=== PATIENT | female | born 1960 | race Caucasian/White ===

== ENCOUNTER 2022-01-30 00:55 | Inpatient (IN) ==
[2022-01-30] MEDS ORDERED: ALBUT/IPRATROP 3MG/0.5MG NEB 3 ML VIAL NEB STA (01:14)
[2022-01-30] MEDS ORDERED: dexAMETHasone**PF** 10 MG/ML VIAL IV ONE (01:14)
--- NOTE | 2022-01-30 01:22 | Emergency Department Note ---
History of Present Illness General Chief complaint: Shortness of Breath/Dyspnea Stated complaint: SOB,SWELLING TONGUE Time Seen by Provider: 01/30/22 01:09 History of Present Illness This is a 61-year-old female presenting to the emergency department for evaluation of shortness of breath symptoms worsening over the past 10 hours. The patient is accompanied by a family member who attempts to provide some histo ry. The patient began having some shortness of breath around 3 PM yesterday which has worsened over the evening. She is coughing and feels like her throat is swelling. Family is unsure whom the patient follows with for primary care services, and they are unsure what medication she is taking. Patient has not had reports of fevers or chills. She is not vaccinated against COVID-19. History is very limited. Home Medications Medication Instructions Recorded Confirmed Type Unobtainable 01/30/22 01/30/22 History Allergies Allergy/AdvReac Type Severity Reaction Status Date / Time aspirin AdvReac Severe Gastrointestinal Verified 01/30/22 01:43 Upset Past Med/Surg History Medical History (Updated 01/30/22 @ 05:41 by Chetan Lynn PA-C) Acute kidney injury Anemia Hyperglycemia Hypothyroidism Shortness of breath Surgical History (Updated 01/30/22 @ 05:41 by Chetan Lynn PA-C) No pertinent past surgical history Social History Smoking Status: Current every day smoker Preferred Language: Spanish Feels Safe at Home: Yes Review of Systems A total of 10 systems reviewed and were otherwise negative Physical Exam Vital Signs Vital Signs - 24 hr 01/30/22 01:03 01/30/22 01:20 01/30/22 01:28 Temperature 36.8 C Temperature Source Oral Pulse Rate 93 H 92 H Pulse Rate [Right Finger] 92 H Pulse Rhythm Regular Pulse Rhythm [Right Finger] Regular Pulse Strength [Right Finger] Normal Respiratory Rate 18 24 Respiratory Effort / Characteristics Spontaneous Labored Respiratory Depth Respiratory Pattern Regular Blood Pressure 150/88 H Blood Pressure [Right Arm] 144/115 H Blood Pressure Mean 108 Blood Pressure Mean [Right Arm] 124 Blood Pressure Position Sitting Blood Pressure Position [Right Arm] Sitting Pulse Oximetry 94 88 L 96 Oxygen Delivery Method Room Air Room Air Nasal Cannula Nasal Cannula Oxygen Flow Rate 0 2 Sepsis Recent Fever Within 48 Hours No Sepsis New/Unexplained Change in Mental Status N/A Sepsis Action Taken by Nursing No Action Required Oxygen Flow Rate - Titration 2 Pulse Oximetry Post Tiitration 96 01/30/22 01:35 01/30/22 03:00 01/30/22 05:21 Temperature Temperature Source Pulse Rate Pulse Rate [Right Finger] 94 H 91 H 88 Pulse Rhythm Pulse Rhythm [Right Finger] Regular Pulse Strength [Right Finger] Normal Respiratory Rate 24 18 19 Respiratory Effort / Characteristics Accessory Muscle Use Respiratory Depth Deep Respiratory Pattern Blood Pressure Blood Pressure [Right Arm] 142/83 H 154/91 H Blood Pressure Mean Blood Pressure Mean [Right Arm] 102 112 Blood Pressure Position Blood Pressure Position [Right Arm] Lying Pulse Oximetry 93 93 94 Oxygen Delivery Method Nasal Cannula Nasal Cannula Nasal Cannula Oxygen Flow Rate 4 2 4 Sepsis Recent Fever Within 48 Hours Sepsis New/Unexplained Change in Mental Status Sepsis Action Taken by Nursing Oxygen Flow Rate - Titration Pulse Oximetry Post Tiitration VITALS: Vitals are noted on the nurse's note and reviewed by myself. Vital signs stable. GENERAL: Female who appears in moderate distress on arrival to the room. She is audibly wheezing and hypoxic at 88% on room air. HEAD: Normocephalic atraumatic. MOUTH: Mucous membranes moist. Question mildly enlarged tongue. Uvula is mi dline and airway patent. Dentition is missing completely. NECK: Supple without nuchal rigidity. No lymphadenopathy. No thyromegaly. Cervical spine is nontender. HEART: Regular rate and rhythm without murmurs gallops or rubs. LUNGS: Scattered crackles and rhonchi throughout. ABDOMEN: Positive normal bowel sounds x 4. Soft, nontender, without masses or organomegaly. No guarding or rebound tenderness. MUSCULOSKELETAL: No muscle atrophy, erythema, or edema noted. Full range of motion in all extremities. Course Administered Medications Discontinued Medications Albuterol (Albut/Ipratrop 3mg/0.5mg Neb 3 Ml Vial) 3 ml NEB NOW STA; Protocol Stop: 01/30/22 01:15 Last Admin: 01/30/22 01:58 Dose: 3 ml Documented by: [id number] Dexamethasone Sodium Phosphate (DexamethasonePf 10 Mg/Ml Vial) 10 mg IV NOW ONE Stop: 01/30/22 01:15 Last Admin: 01/30/22 01:54 Dose: 10 mg Documented by: [id number] Morphine Sulfate (Morphine Sulfate 2 Mg/Ml Carp) 2 mg IV NOW STA Stop: 01/30/22 04:44 Last Admin: 01/30/22 04:57 Dose: 2 mg Documented by: [id number] Medical Decision Making Differential Diagnosis Differential diagnosis includes, but is not limited to: Myocardial infarction, dysrhythmia, pericarditis, pneumothorax, aortic aneurysm/dissection, DVT/PE, anxiety, GERD, PUD, electrolyte imbalance, thyroid disorder, pneumonia, bronchitis, pancreatitis, and others Laboratory Data Result diagrams: 01/30/22 01:35 01/30/22 01:35 Lab Results 01/30/22 01/30/22 01/30/22 Range/Units 01:30 01:34 01:35 WBC 7.79 (4.8-10.8) K/uL RBC 2.53 L (4.2-5.4) M/uL Hgb 8.1 L (12.0-16.0) g/dL Hct 23.7 L (37-47) % MCV 93.7 (80-100) fL MCH 32.0 (25-34) pg MCHC 34.2 (32-36) g/dL RDW Std Deviation 47.2 H (36.4-46.3) fL RDW Coeff of [place] 13.7 (11.5-14.5) % Plt Count 176 (130-400) K/uL MPV 9.7 (7.4-10.4) fL Immature Gran % (Auto) 0.3 % Neut % (Auto) 87.8 % Lymph % (Auto) 8.6 % [place] % (Auto) 3.2 % Eos % (Auto) 0.0 % Baso % (Auto) 0.1 % Neut # (Auto) 6.84 H (1.4-6.5) K/uL Lymph # (Auto) 0.67 L (1.2-3.4) K/uL [place] # (Auto) 0.25 (0.11-0.59) K/uL Eos # (Auto) 0.00 (0-0.5) K/uL Baso # (Auto) 0.01 (0-0.2) K/uL Immature Gran # (Auto) 0.02 (0.00-0.02) K/uL ESR (0-30) mm/hr PT (9.0-12.0) Seconds INR (0.9-1.1) APTT (21.0-31.0) Seconds PTT Ratio VBG pH (7.36-7.41) VBG pCO2 (38-50) mmHg VBG pO2 mmHg VBG HCO3 mmol/L VBG O2 Saturation % VBG Base Excess mEq/L Sodium (136-145) mmol/L Potassium (3.5-5.1) mmol/L Chloride (98-107) mmol/L Carbon Dioxide (21-32) mmol/L Anion Gap (3-11) BUN (6-23) mg/dl Creatinine (0.6-1.2) mg/dl Est Cr Clr Drug Dosing Est GFR ( Amer) ml/min Est GFR (Non-Af Amer) ml/min BUN/Creatinine Ratio (10-20) Glucose (70-99(Fasting)) mg/dl POC Glucose 279 H (70-99) mg/dl Calcium (8.5-10.1) mg/dl Total Bilirubin (0.2-1.0) mg/dl AST (13-39) U/L ALT (7-52) U/L Alkaline Phosphatase (34-104) U/L Troponin I (0-0.04) ng/ml C-Reactive Protein (0-0.5) mg/dl B-Natriuretic Peptide (0-100) pg/ml Total Protein (6.0-8.3) gm/dl Albumin (3.4-5.0) gm/dl Globulin (2.5-4.0) gm/dl Albumin/Globulin Ratio (0.9-2) Procalcitonin (0-0.5) ng/ml TSH (0.300-4.500) uIu/ml Free T4 (0.61-1.60) ng/dl SARS-CoV-2, RNA, NAAT NEGATIVE (NEGATIVE) Blood Type Antibody Screen 01/30/22 01/30/22 01/30/22 Range/Units 01:35 01:35 01:35 WBC (4.8-10.8) K/uL RBC (4.2-5.4) M/uL Hgb (12.0-16.0) g/dL Hct (37-47) % MCV (80-100) fL MCH (25-34) pg MCHC (32-36) g/dL RDW Std Deviation (36.4-46.3) fL RDW Coeff of Emory (11.5-14.5) % Plt Count (130-400) K/uL MPV (7.4-10.4) fL Immature Gran % (Auto) % Neut % (Auto) % Lymph % (Auto) % [place] % (Auto) % Eos % (Auto) % Baso % (Auto) % Neut # (Auto) (1.4-6.5) K/uL Lymph # (Auto) (1.2-3.4) K/uL [place] # (Auto) (0.11-0.59) K/uL Eos # (Auto) (0-0.5) K/uL Baso # (Auto) (0-0.2) K/uL Immature Gran # (Auto) (0.00-0.02) K/uL ESR 53 H (0-30) mm/hr PT (9.0-12.0) Seconds INR (0.9-1.1) APTT (21.0-31.0) Seconds PTT Ratio VBG pH (7.36-7.41) VBG pCO2 (38-50) mmHg VBG pO2 mmHg VBG HCO3 mmol/L VBG O2 Saturation % VBG Base Excess mEq/L Sodium 132 L (136-145) mmol/L Potassium 5.6 H (3.5-5.1) mmol/L Chloride 102 (98-107) mmol/L Carbon Dioxide 21 (21-32) mmol/L Anion Gap 9 (3-11) BUN 31 H (6-23) mg/dl Creatinine 3.53 H (0.6-1.2) mg/dl Est Cr Clr Drug Dosing Not Reportable Est GFR ( Amer) 15.3 ml/min Est GFR (Non-Af Amer) 13.2 ml/min BUN/Creatinine Ratio 8.8 L (10-20) Glucose 248 H (70-99(Fasting)) mg/dl POC Glucose (70-99) mg/dl Calcium 7.9 L (8.5-10.1) mg/dl Total Bilirubin 0.8 (0.2-1.0) mg/dl AST 52 H (13-39) U/L ALT 45 (7-52) U/L Alkaline Phosphatase 177 H (34-104) U/L Troponin I < 0.03 (0-0.04) ng/ml C-Reactive Protein 8.20 H (0-0.5) mg/dl B-Natriuretic Peptide 34 (0-100) pg/ml Total Protein 6.6 (6.0-8.3) gm/dl Albumin 3.4 (3.4-5.0) gm/dl Globulin 3.2 (2.5-4.0) gm/dl Albumin/Globulin Ratio 1.1 (0.9-2) Procalcitonin (0-0.5) ng/ml TSH (0.300-4.500) uIu/ml Free T4 (0.61-1.60) ng/dl SARS-CoV-2, RNA, NAAT (NEGATIVE) Blood Type Antibody Screen 01/30/22 01/30/22 01/30/22 Range/Units 01:35 01:35 01:35 WBC (4.8-10.8) K/uL RBC (4.2-5.4) M/uL Hgb (12.0-16.0) g/dL Hct (37-47) % MCV (80-100) fL MCH (25-34) pg MCHC (32-36) g/dL RDW Std Deviation (36.4-46.3) fL RDW Coeff of Emory (11.5-14.5) % Plt Count (130-400) K/uL MPV (7.4-10.4) fL Immature Gran % (Auto) % Neut % (Auto) % Lymph % (Auto) % [place] % (Auto) % Eos % (Auto) % Baso % (Auto) % Neut # (Auto) (1.4-6.5) K/uL Lymph # (Auto) (1.2-3.4) K/uL [place] # (Auto) (0.11-0.59) K/uL Eos # (Auto) (0-0.5) K/uL Baso # (Auto) (0-0.2) K/uL Immature Gran # (Auto) (0.00-0.02) K/uL ESR (0-30) mm/hr PT 12.0 (9.0-12.0) Seconds INR 1.1 (0.9-1.1) APTT 38.7 H (21.0-31.0) Seconds PTT Ratio 1.4 VBG pH 7.24 L (7.36-7.41) VBG pCO2 56 H (38-50) mmHg VBG pO2 28 mmHg VBG HCO3 24 mmol/L VBG O2 Saturation < 60.0 % VBG Base Excess -4.1 mEq/L Sodium (136-145) mmol/L Potassium (3.5-5.1) mmol/L Chloride (98-107) mmol/L Carbon Dioxide (21-32) mmol/L Anion Gap (3-11) BUN (6-23) mg/dl Creatinine (0.6-1.2) mg/dl Est Cr Clr Drug Dosing Est GFR ( Amer) ml/min Est GFR (Non-Af Amer) ml/min BUN/Creatinine Ratio (10-20) Glucose (70-99(Fasting)) mg/dl POC Glucose (70-99) mg/dl Calcium (8.5-10.1) mg/dl Total Bilirubin (0.2-1.0) mg/dl AST (13-39) U/L ALT (7-52) U/L Alkaline Phosphatase (34-104) U/L Troponin I (0-0.04) ng/ml C-Reactive Protein (0-0.5) mg/dl B-Natriuretic Peptide (0-100) pg/ml Total Protein (6.0-8.3) gm/dl Albumin (3.4-5.0) gm/dl Globulin (2.5-4.0) gm/dl Albumin/Globulin Ratio (0.9-2) Procalcitonin 0.52 H (0-0.5) ng/ml TSH (0.300-4.500) uIu/ml Free T4 (0.61-1.60) ng/dl SARS-CoV-2, RNA, NAAT (NEGATIVE) Blood Type Antibody Screen 01/30/22 01/30/22 Range/Units 01:35 02:15 WBC (4.8-10.8) K/uL RBC (4.2-5.4) M/uL Hgb (12.0-16.0) g/dL Hct (37-47) % MCV (80-100) fL MCH (25-34) pg MCHC (32-36) g/dL RDW Std Deviation (36.4-46.3) fL RDW Coeff of Emory (11.5-14.5) % Plt Count (130-400) K/uL MPV (7.4-10.4) fL Immature Gran % (Auto) % Neut % (Auto) % Lymph % (Auto) % [place] % (Auto) % Eos % (Auto) % Baso % (Auto) % Neut # (Auto) (1.4-6.5) K/uL Lymph # (Auto) (1.2-3.4) K/uL [place] # (Auto) (0.11-0.59) K/uL Eos # (Auto) (0-0.5) K/uL Baso # (Auto) (0-0.2) K/uL Immature Gran # (Auto) (0.00-0.02) K/uL ESR (0-30) mm/hr PT (9.0-12.0) Seconds INR (0.9-1.1) APTT (21.0-31.0) Seconds PTT Ratio VBG pH (7.36-7.41) VBG pCO2 (38-50) mmHg VBG pO2 mmHg VBG HCO3 mmol/L VBG O2 Saturation % VBG Base Excess mEq/L Sodium (136-145) mmol/L Potassium (3.5-5.1) mmol/L Chloride (98-107) mmol/L Carbon Dioxide (21-32) mmol/L Anion Gap (3-11) BUN (6-23) mg/dl Creatinine (0.6-1.2) mg/dl Est Cr Clr Drug Dosing Est GFR ( Amer) ml/min Est GFR (Non-Af Amer) ml/min BUN/Creatinine Ratio (10-20) Glucose (70-99(Fasting)) mg/dl POC Glucose (70-99) mg/dl Calcium (8.5-10.1) mg/dl Total Bilirubin (0.2-1.0) mg/dl AST (13-39) U/L ALT (7-52) U/L Alkaline Phosphatase (34-104) U/L Troponin I (0-0.04) ng/ml C-Reactive Protein (0-0.5) mg/dl B-Natriuretic Peptide (0-100) pg/ml Total Protein (6.0-8.3) gm/dl Albumin (3.4-5.0) gm/dl Globulin (2.5-4.0) gm/dl Albumin/Globulin Ratio (0.9-2) Procalcitonin (0-0.5) ng/ml TSH 358.522 H (0.300-4.500) uIu/ml Free T4 < 0.25 L (0.61-1.60) ng/dl SARS-CoV-2, RNA, NAAT (NEGATIVE) Blood Type O Positive Antibody Screen NEGATIVE ECG Data Attestation: I personally reviewed and interpreted this ECG as follows: Indication: + SOB/dyspnea Additional Comments: Normal sinus rhythm @[address] elevation Low voltage QRS Nonspecific T wave abnormality Abnormal ECG No previous ECGs available MDM Narrative Physical exam and history were performed. Nursing notes, EMR, and Medication List were personally reviewed. Patient appears to have a primary presenting complaint of shortness of breath. The patient does not able to provide much history, nor is family who is at bedside. The patient has never been seen at this facility. I did engage with case management, who did look in the [facility] system, and the patient does not have any records through [facility] either. IV access was established and labs were obtained. The patient was gently hydrated with normal saline and given IV Decadron and a DuoNeb. An order was placed for continuous cardiac monitoring. The monitor shows a rate of 88 with normal sinus rhythm. The patient's blood work is as above and was reviewed. She does not have a significantly elevated white blood cell count. She is anemic at 8.1. Type and screen was drawn. No obvious bleeding was identified on exam. Sed rate is elevated at 53 and INR is 1.1. She is acidotic on her VBG, with a pH of 7.24. PCO2 was 56. Potassium is elevated at 5.6 and she seems to be in acute kidney injury with BUN of 31 and creatinine of 3.53. Glucose is 248. CRP is also elevated at 8. Troponin x1 is negative. Her TSH is significantly elevated at 358. I did contact the lab, and this seems to be an accurate measurement as they had to dilute the sample several times to get a result. Free T4 is not detectable. Covid is negative. She is blood type O+. Chest x-ray does not show distinct process. BNP is normal at 34. On reevaluation the patient did have improvement of her breathing and we were able to wean her from 4 L nasal cannula to 2 L nasal cannula. She was able to provide a small amount of additional history, stating that she did try an inhaler today without any relief of symptoms. The patient is still not able to give me a full past medical history, which makes her case quite challenging. The case was discussed with my attending, who also independently evaluated the patient. The patient does not seem well for discharge. I did discuss the case with the on-call [facility], who is on next for unassigned. Please see their dictation for further patient course, plan, and disposition. The chart was completed utilizing [employer] Speech Voice Recognition Software. Grammatical errors, random word insertions, pronoun errors, and incomplete sentences are an occasional consequence of this system due to software limitations, ambient noise, and hardware issues. Any formal questions or concerns about the content, text, or information contained within the body of this dictation should be directly addressed to the provider for clarification. . Impression & Plan Shortness of breath, Acute kidney injury, Hyperglycemia, Hypothyroidism, Anemia Discharge Plan Visit Data Chief Complaint: Shortness of Breath/Dyspnea Stated Complaint: SOB,SWELLING TONGUE ED Provider: Radha Ramos ED Midlevel Provider: Chetan Lynn Discharge Problem: Shortness of breath, Acute kidney injury, Hyperglycemia, Hypothyroidism, Anemia Patient Disposition: Admitted As Inpatient Forms Stand Alone Forms: NOZA Prescriptions Prescriptions: No Action Unobtainable RF: 0 Referrals Referrals: PCP,NO [Physician] -
[2022-01-30 01:53] LABS: Base Excess VBG -4.1 mEq/L; HCO3 VBG 24 mmol/L; PCO2 VBG 56 mmHg (38-50); PO2 VBG 28 mmHg; pH VBG 7.24 (7.36-7.41)
[2022-01-30 01:57] LABS: Hematocrit (blood only) 23.7 % (37-47); Hemoglobin 8.1 g/dL (12.0-16.0); Mean Corpuscular Hgb Conc 34.2 g/dL (32-36); Mean Corpuscular Volume 93.7 fL (80-100); Mean Platelet Volume 9.7 fL (7.4-10.4); Platelet Count 176 K/uL (130-400); RDW Coefficient of Variation 13.7 % (11.5-14.5); RDW Standard Deviation 47.2 fL (36.4-46.3); Red Blood Count 2.53 M/uL (4.2-5.4); White Blood Count 7.79 K/uL (4.8-10.8)
[2022-01-30 02:05] LABS: Oxygen Saturation VBG < 60.0 %
[2022-01-30 02:06] LABS: INR 1.1 (0.9-1.1); Partial Thromboplastin Ratio 1.4; Partial Thromboplastin Time 38.7 Seconds (21.0-31.0)
[2022-01-30 02:12] LABS: Troponin I < 0.03 ng/ml (0-0.04)
[2022-01-30 02:19] LABS: Alanine Aminotransferase 45 U/L (7-52); Albumin Globulin Ratio 1.1 (0.9-2); Albumin Level 3.4 gm/dl (3.4-5.0); Alkaline Phosphatase 177 U/L (34-104); Anion Gap 9 (3-11); Aspartate Aminotransferase 52 U/L (13-39); BUN Creatinine Ratio 8.8 (10-20); Bilirubin,Total 0.8 mg/dl (0.2-1.0); Blood Urea Nitrogen 31 mg/dl (6-23); Calcium 7.9 mg/dl (8.5-10.1); Carbon Dioxide 21 mmol/L (21-32); Chloride 102 mmol/L (98-107); Est GFR (African American) 15.3 ml/min; Est GFR (Non-African American) 13.2 ml/min; Globulin 3.2 gm/dl (2.5-4.0); Glucose 248 mg/dl (70-99(Fasting)); Potassium 5.6 mmol/L (3.5-5.1); Sodium 132 mmol/L (136-145); Total Protein 6.6 gm/dl (6.0-8.3)
[2022-01-30 02:35] LABS: Basophils # (auto) 0.01 K/uL (0-0.2); Basophils % (auto) 0.1 %; Immature Granulocytes # (auto) 0.02 K/uL (0.00-0.02); Immature Granulocytes % (auto) 0.3 %; Lymphocytes # (auto) 0.67 K/uL (1.2-3.4); Lymphocytes % (auto) 8.6 %; Monocytes # (auto) 0.25 K/uL (0.11-0.59); Monocytes % (auto) 3.2 %; Neutrophils # (auto) 6.84 K/uL (1.4-6.5); Neutrophils % (auto) 87.8 %
[2022-01-30 03:13] LABS: Thyroid Stimulating Hormone 358.522 uIu/ml (0.300-4.500)
[2022-01-30 04:05] LABS: T4 Free Thyroxine < 0.25 ng/dl (0.61-1.60)
[2022-01-30] MEDS ORDERED: MoRPHine SULFATE 2 MG/ML CARP IV STA (04:43)
[2022-01-30] MEDS ORDERED: FAMOTIDINE 20 MG in SYRINGE 3 ML IV SCH ×2 (05:05→21:00)
[2022-01-30 05:47] LABS: Appearance Urine Clear (Clear); Bilirubin Urine Negative (Negative); Blood Urine 3+ (Negative); Color Urine Yellow; Epithelial Cell Urine Auto >30 /lpf (0-5); Glucose Urine UA 1+ (Negative); Ketones Urine Negative (Negative); Leukocyte Esterase Urine Negative (Negative); Nitrite Urine Negative (Negative); Protein Urine 4+ (Negative); Specific Gravity Urine 1.018 (1.000-1.030); Urobilinogen Urine Negative (Negative); pH Urine 5.5 (4.5-7.5)
--- NOTE | 2022-01-30 05:57 | Emergency Department Note ---
ED Visit Note I saw this patient in conjunction with Chetan Lynn PA-C. I agree with his decision making and treatment plan. .
[2022-01-30] MEDS ORDERED: LEVALBUTEROL HCL 1.25 MG/3 ML NEB NEB STA (06:37)
[2022-01-30 06:38] LABS: Influenza B virus by PCR Negative (Neg); RSV by PCR Negative (Neg)
[2022-01-30 06:45] LABS: Influenza A virus by PCR Positive (Neg); SARS CoV2 RNA(COVID-19) InHosp POSITIVE (Negative)
[2022-01-30 06:48] LABS: Bacteria Urine Automated 1+ (Negative); RBC Urine Automated 0-4 /hpf (0-4)
--- NOTE | 2022-01-30 07:45 | History and Physical Report ---
DATE OF ADMISSION: 01/30/2022. CHIEF COMPLAINT: Shortness of breath. HISTORY OF PRESENT ILLNESS: A 61-year-old female with past medical history significant for diabetes, hypertension, hypothyroidism, chronic kidney disease stage III as per the patient, who was brought in because of shortness of breath. The patient used to live in [place]; about a year ago, she moved to [place] to live with a daughter. Since then, she is not taking any medications. When asked why, the patient says she does not have any medications to take. She came to live with family member at [place] recently. The family member states she is like her mom to her and she says rula saw one doctor in [place] but there is another appointment on 02/13/2022 with a new doctor. The patient was brought in because since last 2-3 days, she has had a lot of cough, bringing up some yellow phlegm, shortness of breath and chest pain while she is coughing and she is also getting swollen up and also there is complaint of some tongue swelling. The patient says she has tongue swelling in the past, but again for the last 2-3 days she is again having tongue swelling. The patient smokes 1-2 packs of cigarettes daily. No alcohol. The patient is not a great historian. Daughter does not know what medication she used to take in the past. Denies any heart problems. Currently, hemodynamically stable. The patient says she was told she has chronic kidney disease stage III long time back and she states she used to take levothyroxine 125 mcg daily and she states her blood pressure medications stopped because of her kidney function. Currently, denies any headache. She has some blurred visions, no earache, no runny nose, has some sore throat from coughing. Denies any fever or chills. Has chest pain, which is more with coughing .. No nausea. Appetite is not that great. No difficulty swallowing. No abdominal pain. Denies any diarrhea or constipation. Not making much urine as per the daughter. Not ambulating much, but she can go to bathroom and come back. ALLERGIES: ASPIRIN. PAST MEDICAL HISTORY: As mentioned above. We do not have complete past medical history list. PAST SURGICAL HISTORY: The patient denies any surgical history. MEDICATIONS: The patient is currently not taking any medications. FAMILY HISTORY: Significant for hypertension, diabetes, and heart problems. SOCIAL HISTORY: Smokes 1-2 packs of cigarettes daily. Denies alcohol use. Currently living with her daughter. REVIEW OF SYSTEMS: As per HPI. Rest of review of systems is negative. PHYSICAL EXAMINATION: GENERAL: The patient is obese, not in acute distress. VITAL SIGNS: Temperature 36.8, pulse 91, respiratory rate 18, blood pressure 142/83. Oxygen, she was 88% when came in, 93% on 2 liters. HEENT: Pupils equal, round and reactive to light. Oral mucosa moist. NECK: No JVD, no neck masses. CARDIOVASCULAR: S1 and S2 heard. Regular rate and rhythm. No murmur, no gallop. RESPIRATORY SYSTEM: Normal AP diameter. No accessory muscle use. Bilateral rhonchi heard. No wheezing. ABDOMEN: Soft, bowel sounds present, nontender, no distention. CENTRAL NERVOUS SYSTEM: Alert and oriented. Speech is clear. No facial droop. Obeys simple commands. Moves extremities. EXTREMITIES: Bilateral lower extremity edema present. LABORATORY DATA: WBC 7.7, hemoglobin 8.1, hematocrit 23.7, platelets 176. ESR 53. PT 12, INR 1.1, APTT 38.7. Venous pH of 7.24, pCO2 of 56, bicarbonate 24. Sodium 132, potassium 5.6, chloride 102, bicarbonate 21, BUN 31, creatinine 3.5, serum glucose 248, calcium 7.9, total bilirubin 0.8, AST 52, ALT 45, alkaline phosphatase 177. Troponin I less than 0.03. C-reactive protein 8.2. BNP 34. Procalcitonin 0.5. TSH is 358. Free T4 less than 0.25. SARS-CoV-2 rapid test negative. IMAGING DATA: Chest x-ray, possible bibasilar infiltrates. EKG: Normal sinus rhythm at a rate of 94. Nonspecific ST-T wave abnormalities. ASSESSMENT AND PLAN: This 61-year-old female presents with shortness of breath. 1. Shortness of breath. Possible chronic obstructive pulmonary disease exacerbation as the patient smokes 1-2 packs of cigarettes daily, has rhonchi on exam. We will get CT chest to get a better picture. Empirically starting on Rocephin and doxycycline. Received Decadron in the ER. We will continue with IV Solu-Medrol 40 t.i.d., nebs around the clock and p.r.n. Follow repeat ABG .Closely monitor in the tele floor. two step oxygen test prior to discharge. 2. Chronic kidney disease. The patient says she has chronic kidney disease stage III long time back . Currently Anamika vs CKD stage IV-V. Getting gentle fluids. Avoid nephrotoxic agents. We will consult Nephrology. 3. Hyperkalemia, potassium 5.6. We will do Kayexalate. Follow the repeat labs. 4. Hypothyroidism. The patient says she used to take 175 mcg of levothyroxine before, currently is not taking the medication since last one year. TSH wis super high 358 and free T4 less than 0.25, started 50 mcg of levothyroxine. We will need to discuss with Endocrinology for optimal dosing. 5. Anemia, hemoglobin of 8.1. Most likely anemia of chronic kidney disease. We will follow the Hemoccult studies and also iron studies, and vitamin B12, folate levels. Await Nephrology input. 6. Diabetes, currently not taking any medication. Place on Lantus 6 units b.i.d., insulin sliding scale. Follow Hb A1c level. Follow the blood sugars. 7. Chest pain. This pain is more when taking deep breath. Because of the edema of the legs, will also follow echocardiogram and follow serial enzymes. 8. Swollen tongue. As per the patient, it had happened before too. Possible allergic reaction, possible angioedema. Received Decadron in the ER. We will continue currently with Solu-Medrol , Zyrtec and Pepcid and IV Benadryl p.r.n. Closely monitor. 9. Deep venous thrombosis prophylaxis: Heparin subcutaneously. DISPOSITION: Closely monitor in the tele. Level 1 full code. Expect to discharge home and follow up with family doctor. PT/OT prior to discharge. Social service to help with discharge planning and to provide prescriptions at the time of discharge. Addendum: Covid positive. Cannot give remdesivir because of kidney function. getting steroids. Isolation precautions Close monitor. Influenza A positive Started on Tamiflu. Job ID: [id number] [facility]
[2022-01-30] MEDS: OSELTAMIVIR PHOSPHATE 75 MG CAP PO SCH ×2 (07:47→15:08)
[2022-01-30] MEDS ORDERED: SODIUM POLYSTYRENE SULFONATE 15G/60ML SUSP PO STA (07:53)
--- NOTE | 2022-01-30 07:56 | XRay Report ---
XR chest 1V portable CLINICAL HISTORY: sob. COMPARISON STUDY: No previous studies for comparison. TECHNIQUE: 1 view of the chest FINDINGS: Single frontal view of the chest demonstrates the heart size to be enlarged. There is indistinctness of the central hilar vessels in the presence of mild central vascular congestion cannot be excluded. The lungs are clear of alveolar opacities. There is no evidence for pleural effusion. There is no per ipheral interstitial edema. There is no acute osseous pathology. IMPRESSION: 1. Cardiomegaly with suspicion of mild central vascular congestion. ACT 112: Negative or not required by law. Electronically signed by: Stiven Garcia M.D. 01/30/2022 7:54 AM
--- NOTE | 2022-01-30 08:30 | CT Scan Report ---
CT chest diagnostic wo con CT DOSE: 813.45 mGy.cm HISTORY: Shortness of breath. TECHNIQUE: Multiaxial CT images of the chest were performed without contrast. A dose lowering techni que was utilized adhering to the principles of ALARA. COMPARISON: None. FINDINGS: Significant respiratory motion artifact resulting in suboptimal evaluation. No pneumothorax . Consolidative airspace opacities seen within the lung bases most pronounced within the left lower l obe. There are also a few small patchy airspace opacities within the upper lobes, right greater than left. No suspicious lytic or blastic osseous lesions. Mild mediastinal lymphadenopathy. The jessica are not well evaluated. Moderate pericardial effusion measuring up to 1.7 cm in thickness. The heart is e nlarged. Normal caliber thoracic aorta. The esophagus is within normal limits. Limited views of the u pper abdomen demonstrate normal liver and spleen. IMPRESSION: 1. Significant respiratory motion artifact resulting in suboptimal due to the chest. 2. Multifocal consolidative airspace opacities most pronounced within the lower lobes consistent with a pneumonia. 3. Cardiomegaly with a moderate pericardial effusion. 4. Mild mediastinal lymphadenopathy. This is likely reactive to the suspected pneumonia. ACT 112: Negative or not required by law. Electronically signed by: Justen Reinoso M.D. 01/30/2022 8:28 AM
[2022-01-30] MEDS ORDERED: LEVALBUTEROL HCL 1.25 MG/3 ML NEB NEB PRN (08:56)
[2022-01-30] MEDS ORDERED: CETIRIZINE HCL 10 MG TABLET PO ONE (08:56)
[2022-01-30] MEDS ORDERED: diphenhydrAMINE 50 MG/ML VIAL IV PRN (08:56)
[2022-01-30] MEDS ORDERED: ACETAMINOPHEN 325 MG TAB PO PRN (08:56)
[2022-01-30] MEDS ORDERED: SODIUM CHLORIDE 0.9% 1000ML 1,000 ML IV SCH (08:56)
[2022-01-30] MEDS ORDERED: XOPENEX/ATROVENT 1.25mg/0.5MG NEB COMBO NEB SCH (08:56)
[2022-01-30] MEDS ORDERED: LEVOTHYROXINE SODIUM 50 MCG TABLET PO SCH (08:56)
[2022-01-30] MEDS ORDERED: NITROGLYCERIN SL 0.4 MG/TAB TAB SL PRN (08:56)
[2022-01-30] MEDS ORDERED: POLYETHYLENE (MIRALAX) 17 GM PACK PO PRN (08:56)
[2022-01-30] MEDS ORDERED: ONDANSETRON INJ 2 MG/ML 2 ML VIAL IV PRN (08:56)
[2022-01-30] MEDS ORDERED: INSULIN GLARGINE SOLOSTAR 100 UNITS/ML 3 ML PEN SC SCH ×2 (09:00→10:45)
[2022-01-30] MEDS: LEVALBUTEROL 1.25MG/0.5ML NEB INH SCH ×4 (09:39→19:33)
[2022-01-30] MEDS: IPRATROPIUM BROMIDE NEB SOLN 0.02% 2.5 ML VIAL INH SCH ×4 (09:39→19:33)
[2022-01-30 09:57] LABS: Hematocrit (blood only) 23.9 % (37-47); Mean Corpuscular Hemoglobin 31.3 pg (25-34); Mean Corpuscular Hgb Conc 33.5 g/dL (32-36); Mean Corpuscular Volume 93.4 fL (80-100); Platelet Count 147 K/uL (130-400); RDW Coefficient of Variation 13.8 % (11.5-14.5); RDW Standard Deviation 47.2 fL (36.4-46.3); Red Blood Count 2.56 M/uL (4.2-5.4); White Blood Count 8.66 K/uL (4.8-10.8)
[2022-01-30] MEDS ORDERED: cefTRIAXone SODIUM 2,000 MG in DEXTROSE 5% 50 ML IV SCH (10:00)
[2022-01-30] MEDS ORDERED: HEPARIN SOD 5,000 UNIT/0.5 ML VIAL SQ SCH (10:00)
[2022-01-30 10:01] LABS: Base Excess ABG -6.5 mEq/L (-9-1.8); HCO3 ABG 21 mmol/L (19-24); Oxygen Saturation ABG 82.2 % (90-95); PCO2 ABG 53 mmHg (35-46); PO2 ABG 57 mmHg (80-95); pH ABG 7.22 (7.35-7.45)
[2022-01-30 10:12] LABS: Allen Test Pos (Pos)
[2022-01-30] MEDS ORDERED: FUROSEMIDE 10 MG/ML 10 ML VIAL IV ONE (10:14)
[2022-01-30 10:19] LABS: Basophils # (auto) 0.01 K/uL (0-0.2); Basophils % (auto) 0.1 %; Immature Granulocytes # (auto) 0.03 K/uL (0.00-0.02); Immature Granulocytes % (auto) 0.3 %; Lymphocytes # (auto) 0.48 K/uL (1.2-3.4); Lymphocytes % (auto) 5.5 %; Monocytes # (auto) 0.41 K/uL (0.11-0.59); Monocytes % (auto) 4.7 %; Neutrophils # (auto) 7.73 K/uL (1.4-6.5); Neutrophils % (auto) 89.4 %; Troponin I < 0.03 ng/ml (0-0.04)
[2022-01-30 10:43] LABS: Folate (Folic Acid) 15.1 ng/ml (>5.38)
[2022-01-30 11:02] LABS: Estimated Average Glucose 318 mg/dl; Hemoglobin A1C 12.7 % (4.5-5.6)
[2022-01-30] MEDS ORDERED: ePHEDrine sulfate 50 MG/ML AMP ONE (11:03)
[2022-01-30] MEDS ORDERED: NovoLIN-R INSULIN PER UNIT CHARGE ONE (11:06)
[2022-01-30 11:11] LABS: Anion Gap 10 (3-11); BUN Creatinine Ratio 9.7 (10-20); Blood Urea Nitrogen 33 mg/dl (6-23); Calcium 8.6 mg/dl (8.5-10.1); Carbon Dioxide 20 mmol/L (21-32); Chloride 103 mmol/L (98-107); Creatinine Clr Calc Pharmacy 19.8 ml/min; Est GFR (Non-African American) 13.8 ml/min; Glucose 248 mg/dl (70-99(Fasting)); Iron 23 mcg/dl (35-150); Magnesium 1.8 mg/dl (1.7-2.4); Potassium 5.2 mmol/L (3.5-5.1); Sodium 133 mmol/L (136-145); Total Iron Binding Cap Calc 280 mcg/dl (250-450); Transferrin (FE) Percent Satur 8 % (15-50); Unsaturated Iron Binding Cap 257 mcg/dl (155-355)
[2022-01-30] MEDS ORDERED: STAT IV Infusion **Titration per Protocol STA ×4 (11:15→12:07)
[2022-01-30] MEDS ORDERED: EPINEPHrine/NSS 4 MG/254 ML BAG IV SCH (11:15)
[2022-01-30 11:25] LABS: D Dimer 2270 ug/L FEU (0-500)
[2022-01-30] MEDS: EPINEPHrine/NSS 4 MG/254 ML BAG IV SCH ×7 (11:29→22:35)
[2022-01-30] MEDS ORDERED: SODIUM CHLORIDE 0.9% 250 ML IV PRN (11:35)
[2022-01-30] MEDS ORDERED: ATROPINE SULFATE 0.1 MG/ML 10ML SYR IV ONE ×2 (11:54)
[2022-01-30] MEDS ORDERED: ETOMIDATE 2 MG/ML 20 ML VIAL IV ONE (11:57)
--- NOTE | 2022-01-30 11:57 | Hospitalist Progress Note ---
Date of Service January 30, 2022 Assessment & Plan (1) Respiratory failure requiring intubation: (2) Hypothyroid coma: (3) Hyperkalemia: (4) Hypothyroidism: (5) Hyponatremia: (6) Anemia: (7) Shortness of breath: (8) Acute kidney injury: (9) Hyperglycemia: Plan: Patient c difficulties, SOB, Abn ABG, Resp distress, TSH 358, Abn CTC, Placed on BIPAP, discussed case c CC Dr, Ordered-NTP, Lasix, IV Synthroid, BIPAP. Shortly thereafter she coded, was in PEA, Rec Epi, CaCl2, D50, Insulin, Intubated, Cards at bedside and gave verbal echo report, +Pericardial Effusion, No Tamponade, Hyperdynamic LV, Also Cr 3.56. Transferred to ICU. Will follow. (90 mins CC time spent with patient) ROS-No Headache, No Visual Changes, No Nausea, No Vomiting, No Fever, No Chills, No Neck Pain or Stiffness, No Chest Pain, No Palpitations, + SOB, No TONY, No Cough, No Sputum, No Wheezing, No Abdominal Pain, No Diarrhea, No Hematemesis, No Hemoptysis, No Unexpected Weight Loss, No Flank pain, No Melena, No Hematochezia, No Frequency, No Urgency, No Burning, No Hematuria, No Rashes, No Diaphoresis. Appetite is Normal Physical Exam Gen-AAO x 3, Severe Resp distress, Afebrile, On BIPAP, obese-BMI 46 Head-NCAT, EOMI, PERRLA, Anicteric Sclera, No Posterior Pharyngeal Erythema Neck-Supple, No JVD, No Thyromegaly, No Masses, No LAD, No Bruits Lungs-Clear to Auscultation Bilaterally, No Rales, No Rhonchi, No Wheezing, No Crepitus Chest-No S4, +S1, +S2, No S3, No Murmurs, No Rubs, No Gallops, No Ectopy Abdomen-Soft, Bowel Sounds Present, Obese, Non Tender, Non Distended, No Hepatomegaly, No Splenomegaly, No Palpable Masses, No Rebound, No Rigidity, No Guarding Musculoskeletal-Full Range of Motion Bilaterally, No CVAT Extremities-No Cyanosis, No Clubbing, No Edema Nuero-Cranial Nerves II-XII grossly intact, Motor WNL, DTRs WNL, Strength WNL, Non Focal Psych-Normal Mood Admission and Anticipated Discharge Date Admission Date: January 30, 2022 Subjective Went to bedside and PT in resp distress, on BIPAP. Results & Data Results & Data ([facility]) Vital Signs (Past 12 Hours) Vital Signs Temp Pulse Pulse Resp BP BP Pulse Ox 01/30/22 10:39 101 H 30 H 93 01/30/22 09:19 94 H 24 01/30/22 07:49 90 20 146/83 H 95 01/30/22 07:34 91 H 20 146/83 H 94 01/30/22 06:43 90 26 H 177/83 H 99 01/30/22 05:21 88 19 154/91 H 94 01/30/22 03:00 91 H 18 142/83 H 93 01/30/22 01:35 94 H 24 93 01/30/22 01:28 92 H 92 H 24 144/115 H 96 01/30/22 01:20 88 L 01/30/22 01:03 36.8 C 93 H 18 150/88 H 94 Critical Care Time 90 mins
[2022-01-30] MEDS ORDERED: VECURONIUM BROMIDE 10 MG VIAL IV ONE (11:58)
--- NOTE | 2022-01-30 11:58 | XRay Report ---
XR chest 1V portable HISTORY: Endotracheal tube placement. COMPARISON: Chest 01/30/2022. FINDINGS: There are low lung volumes. No pneumothorax. No pleural fusions. The cortex remains moderat thalia enlarged. Endotracheal tube terminates 1.8 cm and the naheed. Right jugular central venous cathet er terminates at the superior cavoatrial junction. Progressive diffuse interstitial/vascular thickeni ng consistent with pulmonary edema. IMPRESSION: 1. Satisfactory support line placement. 2. Cardiomegaly with progressive interstitial pulmonary edema. ACT 112: Negative or not required by law. Electronically signed by: Justen Reinoso M.D. 01/30/2022 11:56 AM
[2022-01-30] MEDS ORDERED: ICU PROTOCOL FOR HYPERGLYCEMIA PRN (12:01)
[2022-01-30] MEDS ORDERED: MIDAZOLAM BOLUS FROM BAG IV PRN (12:07)
[2022-01-30] MEDS ORDERED: STAT IV STA (12:07)
[2022-01-30] MEDS ORDERED: fentaNYL citrate 2,500 MCG/250 ML BAG IV ONE (12:09)
[2022-01-30] MEDS ORDERED: MIDAZOLAM HCL 125MG/250ML D5W ONE (12:10)
[2022-01-30] MEDS ORDERED: fentaNYL citrate 2,500 MCG/250 ML BAG IV SCH (12:15)
[2022-01-30] MEDS ORDERED: CISATRACURIUM BESYLATE 40 MG in DEXTROSE 5% 80 ML IV SCH (12:15)
[2022-01-30] MEDS ORDERED: MIDAZOLAM HCL 125 MG/250 ML BAG IV SCH (12:15)
[2022-01-30] MEDS ORDERED: LEVOTHYROXINE SODIUM IV STA (12:22)
[2022-01-30 12:36] LABS: iSTAT Art Bld Gas pCO2 Correct 112 mmHg (35-46); iSTAT Art Bld Gas pH Corrected 6.813 (7.35-7.45); iSTAT Arterial Blood Gas HCO3 18 meg/L (19-24); iSTAT Arterial Blood Gas pCO2 > 115 mmHg (35-46); iSTAT Arterial Blood Gas pO2 69 mmHg (80-95); iSTAT Arterial Blood Gas pO2 C 64; iSTAT Carbon Dioxide 22 mmol/L (24-31); iSTAT FiO2 100 %; iSTAT Hematocrit 16 % (37-47); iSTAT Hemoglobin 5.4 g/dl (12.0-16.0); iSTAT Site Art Line; iSTAT Sodium 134 mmol/L (135-144)
--- NOTE | 2022-01-30 13:10 | XRay Report ---
XR chest 1V portable CLINICAL HISTORY: hypoxia/covid TECHNIQUE: Single frontal radiograph of the chest was obtained. Comparison: Comparison is made to chest one view 01/30/2022 FINDINGS: Lines and tubes are stable. Cardiomegaly is noted. Multifocal airspace opacities are seen. Prominence of the pulmonary vasculature is again seen. A left effusion cannot be entirely excluded. IMPRESSION: No acute chest disease. Cardiomegaly is noted. Redemonstration of pulmonary congestion. Interval grea ter prominence of multifocal airspace opacities which may represent atelectasis, pneumonia, aspiratio n, and/or alveolar edema. ACT 112: Negative or not required by law. Electronically signed by: Jona Galvez M.D. 01/30/2022 1:09 PM
--- NOTE | 2022-01-30 13:11 | Critical Care Consultation ---
Date of Consultation January 30, 2022 Assessment & Plan (1) Cardiac arrest: (2) Respiratory failure requiring intubation: (3) COVID-19: (4) Flu: (5) Acute kidney injury: (6) Acute anemia: Supervising Physician Co-Signing Physician Notes 61-year-old female with a past medical history of diabetes mellitus type 2, obesity and hypertension who presented to the hospital due to shortness of breath and was found to have pneumonia from COVID-19 and influenza. She underwent a cardiac arrest and has ROSC Neurologic: Not following commands. Will maintain normothermia. Will obtain CT head when more stable. Pulmonary: ARDS secondary to COVID-19 and influenza. Continue lung protective ventilation strategy. Patient with a history of heavy smoking and possible COPD. Patient also with possible OHS. Hospitalist discussed sampler first in [place] and they noted that she is not a candidate for ECMO given her size and and age greater than 50. We will attempt proning to improve oxygenation. She has severe hypercapnic respiratory failure. Cardiovascular: Tachybradycardia syndrome likely hypoxia mediated. Echo with evidence of pericardial effusion. No tamponade physiology seen. Cardiology following. Continue epinephrine drip to maintain maps above 65. Will not pursue targeted temperature management given her instability. Will pursue normothermia. Troponin. Gastrointestinal: G-tube in place. Hold tube feeds today. Will initiate PPI. Renal: Possible CKD stage III. Unknown baseline. Will monitor urine output closely. Given IV fluid boluses during the Cardiac arrest. Infectious disease: We will panculture. Will initiate vancomycin and obtain MRSA screen. Continue cefepime. Hematologic: Given 1 unit of blood due to baseline anemia. Repeating CBC. Plan of care hemoglobin 5.4. We will hold on anticoagulation at this time. Endocrine: TSH very elevated. Will initiate IV levothyroxine. Lines and tubes: Rogel catheter in place. ETT in place 3/3. Right IJ placed 3/3. Right femoral arterial line in place 3/3 and should be considered a dirty line and removed as soon as possible once stabilized. VTE prophylaxis: SCDs CODE STATUS: DNR/DNI Family at bedside: Updated by critical care CARLOS ray. Disposition: Remain in ICU I have personally spent 79 minutes of critical care time in the direct management of this patient. This is a life/limb threatening event. This includes time spent evaluating patient, direct bedside care, chart review, placing orders, interpretation of diagnostic studies, discussion with consultants, patient, and family members, as well as other required patient management activities. This time is exclusive of all separately billable procedures, and teaching time and separate from and in addition to any other critical care service time. Thank you for allowing us to participate in the care of this patient. History of Present Illness Reason for Consultation: Cardiac arrest secondary to hypoxia Attending Physician: Dominik Plata DO History of Present Illness 61-year-old morbidly obese female who presented to the hospital today with a past medical history of diabetes mellitus, A1c 12.7, hypertension, hypothyroidism, chronic kidney disease presenting due to shortness of breath. Patient lives in [place] about 1 year ago moved to the [facility] to live with her daughter. I am unable to obtain any history from the patient as she is currently intubated and encephalopathic. Collateral history is obtained from chart review and discussion with multiple providers. Apparently over the last 3 days the patient had increasing cough with sputum production and shortness of breath. Patient regularly smokes 1 to 2 packs/day. Admitting hospitalist noted that the patient was poor historian. There is also questionable medical compliance per the chart. She was identified as having influenza type a and COVID-19 on 01/30/2022 at 5:[address] of her chest was completed on 01/30 which was significantly impaired due to respiratory motion artifact. Multi focal infiltrates were noted and a moderate pericardial effusion was seen. Echo was obtained which did not show tamponade physiology. Normal LVEF was seen. Patient was on BiPAP throughout the day and unfortunately became progressively hypoxemic and ultimately had loss of pulses and was found to be in PEA cardiac arrest at 10:53 AM. Chest compressions were started soon after. Allergies Allergy/AdvReac Type Severity Reaction Status Date / Time aspirin AdvReac Severe Gastrointestinal Verified 01/30/22 01:43 Upset Home Medications Medication Instructions Recorded Confirmed Type Unobtainable 01/30/22 01/30/22 History Patient History Medical History (Updated 01/30/22 @ 14:02 by Heber Gloria MD) Acute anemia Acute kidney injury Anemia Cardiac arrest COVID-19 Flu Hyperglycemia Hypothyroidism Shortness of breath Surgical History (Updated 01/30/22 @ 05:41 by Chetan Lynn PA-C) No pertinent past surgical history Social History Smoking Status: Current every day smoker Preferred Language: Burkinan Feels Safe at Home: Yes Review of Systems Review of Systems: All systems reviewed & are unremarkable except as noted in HPI & below Physical Exam Physical Exam: Constitutional: Patient encephalopathic and unable to respond to commands. Severely tachypneic. Eyes: Pupils are equal round and reactive to light. Conjunctivae are normal. Anicteric sclera. Ears nose, mouth and throat: Mallampati class 3. Normal posterior oropharynx. Uvula is midline. Neck: Trachea is midline. Visual inspection is normal. Respiratory: Rales bilaterally with diminished lung sounds Cardiovascular: Bradycardic. 2 out of 6 systolic murmur. 1+ pitting edema in the lower extremities bilaterally Gastrointestinal: Normal bowel sounds, soft, nontender and nondistended. No hepatosplenomegaly noted. Musculoskeletal: Peripheral cyanosis. Spontaneously moves all extremities. Skin: No rashes, warm dry and intact. Neurologic: Moves extremities. Attending. Psychiatric: Obtunded Results & Data Results & Data ([facility]) Vital Signs (Past 12 Hours) Vital Signs Temp Pulse Pulse Resp BP BP Pulse Ox 01/30/22 12:45 58 L 28 H 83 L 01/30/22 12:30 59 L 30 H 81 L 01/30/22 12:15 62 0 L 78 L 01/30/22 12:11 36.4 C L 128 H 8 L 185/92 H 81 L 01/30/22 12:00 52 L 20 01/30/22 11:45 138 H 25 H 78 L 01/30/22 11:38 127 H 24 129/82 85 L 01/30/22 11:36 26 H 114/63 87 L 01/30/22 11:35 70 28 H 107/60 88 L 01/30/22 11:31 54 L 25 H 77/53 L 79 L 01/30/22 11:30 63 15 82 L 01/30/22 11:29 62 26 H 105/58 L 79 L 01/30/22 11:27 66 16 98/59 L 80 L 01/30/22 11:24 67 22 111/57 L 85 L 01/30/22 11:23 68 22 115/68 86 L 01/30/22 11:20 68 25 H 123/63 90 01/30/22 11:19 68 27 H 119/76 90 01/30/22 11:17 69 20 134/76 90 01/30/22 11:15 24 90 01/30/22 11:14 140 H 27 H 136/83 90 01/30/22 11:12 130 H 22 135/103 H 89 L 01/30/22 11:10 74 22 126/67 81 L 01/30/22 11:09 19 152/84 H 83 L 01/30/22 11:08 22 174/106 H 01/30/22 11:06 138 H 10 L 171/114 H 01/30/22 11:04 195/138 H 01/30/22 11:00 126 H 48 H 88 L 01/30/22 10:45 102 H 23 01/30/22 10:39 101 H 30 H 93 01/30/22 10:33 29 H 162/145 H 98 01/30/22 10:30 34 H 135/93 90 01/30/22 10:15 100 H 19 93 01/30/22 09:19 94 H 24 01/30/22 07:49 90 20 146/83 H 95 01/30/22 07:34 91 H 20 146/83 H 94 01/30/22 06:43 90 26 H 177/83 H 99 01/30/22 05:21 88 19 154/91 H 94 01/30/22 03:00 91 H 18 142/83 H 93 01/30/22 01:35 94 H 24 93 01/30/22 01:28 92 H 92 H 24 144/115 H 96 01/30/22 01:20 88 L Coding Level of Care Code Critical Care 1st 30-74 mins Diagnoses Cardiac arrest I46.9 Respiratory failure requiring intubation J96.90 COVID-19 U07.1 Flu J11.1 Acute kidney injury N17.9 Acute anemia D64.9 Time Spent (min) 79
--- NOTE | 2022-01-30 13:11 | XRay Report ---
XR chest 1V portable CLINICAL HISTORY: Check for OGT placement TECHNIQUE: Single frontal radiograph of the chest was obtained. Comparison: Comparison is made to chest one view 02/16/2022 FINDINGS: Stable appearance of endotracheal tube and right IJ catheter. Interval placement of enteric tube. The tip is not visualized however the side-port and tip are below the diaphragm. Cardiomegaly is noted. Multifocal airspace opacities are seen. Pulmonary vascular prominence is seen. Cannot exclude small l eft pleural effusion. IMPRESSION: Satisfactory appearance of enteric tube with side-port and tip below the diaphragm. Additional stable findings as above. ACT 112: Negative or not required by law. Electronically signed by: Jona Galvez M.D. 01/30/2022 1:10 PM
--- NOTE | 2022-01-30 13:13 | Procedure Note ---
Procedure Note Date of Service January 30, 2022 Note INTUBATION PROCEDURE NOTE: Dr. Heber Gloria A time-out was completed verifying correct patient, procedure, site, positioning. Patient was evaluated and required intubation for cardiac arrest and hypoxemic respiratory failure Sedative agent used: None Paralysis agent used: None Emergent consent was implied given patients rapidly declining clinical status and need for airway protection. Number of attempts: 1 The patient was prepared in the appropriate fashion. Sedation was utilized. The patient was easily ventilated using [id number] to achieve adequate oxygenation. A 7.5 [place] endotracheal tube was placed under glide scope guidance to 24 cm at the lip. The stylette was removed and balloon was inflated with 10mL of air. Appropriate Colorimetric change was appreciated. Bilateral breath sounds were heard without air sounds in the abdomen. Post Intubation Chest X-ray ordered showed proper placement of the ET tube. Oxygen saturations prior to intubation were in the 70s and post intubation were in the 80s on 100% FiO2. Coding CPT Codes Resuscitation - Resuscitation: 92120 Endotracheal Intubation, emergency ([id number]) [facility] [place] Procedure Codes (Charges) Resuscitation Resuscitation: 58749 Endotracheal Intubation, emergency
--- NOTE | 2022-01-30 13:14 | Procedure Note ---
Procedure Note Date of Service January 30, 2022 Note Right INTERNAL JUGULAR CENTRAL LINE PROCEDURE NOTE: Procedure: Internal Jugular Central Line Placement Indication: Central Drug Administration, Poor Venous Access, Multiple Lab Draws Necessary, etc. Anesthesia: None Procedure was done emergently given the patient's severely compromised hemodynamic status. A time-out was completed verifying correct patient, procedure, site, positioning, and implants(s) or special equipment if applicable. Patients right neck was cleansed and draped in the typical sterile fashion using Chloraprep. The Internal Jugular Vein and Carotid Artery were identified using ultrasound. After adequate anesthetization was achieved, the Internal Jugular vein was cannulated under direct ultrasound guidance using an introducer needle on a syringe. Good venous blood return was maintained prior to removal of syringe from introducer needle. Using Seldinger Technique, a guide wire was advanced through the introducer needle without resistance. The introducer needle was removed and ultrasound images were obtained of the guide wire within the Internal Jugular Vein and saved to the patients medical record. A small incision was made in penetrating fashion at the guide wire insertion site util izing an 11 blade scalpel. The dilator was advanced to the vessel without resistance. The dilator was exchanged for the triple lumen catheter which was advanced into the vessel without resistance. The guide wire was removed intact from the catheter without issue. Claves were placed on each catheter tip with confirmation of good blood flow from each lumen. Each port was easily flushed with sterile saline. The catheter was placed at 18 cm and sut[address] in place. BioPatch was applied to the catheter and a sterile Tegaderm dressing was applied over the catheter with careful attention to sterility. Patient tolerated procedure well. No immediate complications were met. Post procedure x-ray was completed, placement was appropriate and no pneumothorax was noted. Images obtained are saved for permanent record Coding CPT Codes Tubes, Drains, and Vasc Access - Tubes, Drains, and Vasc Access: [id number] Place catheter in vein superior or inferior vena cava ([id number]) Tubes, Drains, and Vasc Access - Tubes, Drains, and Vasc Access: [id number] Ultrasound Guidance For Vascular ([id number]) [facility] [place] Codes (Charges) Tubes, Drains, and Vasc Access Procedure 1: Tubes, Drains, and Vasc Access: [id number] Place catheter in vein superior or inferior vena cava Procedure 2: Tubes, Drains, and Vasc Access: [id number] Ultrasound Guidance For Vascular
--- NOTE | 2022-01-30 13:18 | Procedure Note ---
Procedure Note Date of Service January 30, 2022 Note Right femoral arterial line placement Procedure was done emergently as the patient was in the pericardiac arrest. Line should be considered dirty. Chlorhexidine was used to prep the site. An attempt was made to utilize sterile gloves and a sterile cover, however there were certainly breaks in the sterile technique due to the pressing nature and emergency situation. Line should be removed when possible. Ultrasound was used to localize the right femoral vein and right femoral artery. Introducer needle was utilized to find the right femoral artery. An angiocatheter was inserted over the introducer needle. A wire was then inserted. Angiocatheter was removed. A longer angiocatheter was then inserted over the wire and the wire was then removed. Pulsatile flow was felt. Angiocatheter was hooked up to the transducer and there was a clear arterial waveform. The angiocatheter was sutured to the skin and a Tegaderm was placed over the site. No complications were seen. Ultrasound was utilized for the procedure. Coding CPT Codes Tubes, Drains, and Vasc Access - Tubes, Drains, and Vasc Access: [id number] Place Catheter In Artery ([id number]) Tubes, Drains, and Vasc Access - Tubes, Drains, and Vasc Access: [id number] Ultrasound Guidance For Vascular ([id number]) [facility] [place] Procedure Codes (Charges) Tubes, Drains, and Vasc Access Procedure 1: Tubes, Drains, and Vasc Access: [id number] Place Catheter In Artery Procedure 2: Tubes, Drains, and Vasc Access: [id number] Ultrasound Guidance For Vascular
--- NOTE | 2022-01-30 13:20 | Procedure Note ---
Procedure Note Date of Service January 30, 2022 Note Procedure was done emergently due to patient's severe hypoxemia and concern for dislodgment of the endotracheal tube. Patient was on full ventilation on 100% oxygen prior to insertion of the bronchoscope. Saturations were in the low 80s. Tidal volumes were significantly reduced and there was at least 50% loss of tidal volumes. I introduced the bronchoscope directly via the endotracheal tube. The patient was temporarily taken off ventilation. I quickly evaluated the trachea in the right mainstem and left mainstem bronchus. No obvious obstruction was seen. The endotracheal tube was clearly within the trachea. No bleeding was noted. The bronchoscope was removed. Patient sats remained stable after the procedure and remained in the 80 percentile range as prior to the procedure. Coding CPT Codes Pulmonary/Thoracic - Pulmonary and Thoracic: 01238 Bronchoscopy, clear airways ([id number]) [facility] [place]Charges) Pulmonary/Thoracic Procedure 1: Pulmonary and Thoracic: 03260 Bronchoscopy, clear airways
--- NOTE | 2022-01-30 13:25 | Procedure Note ---
Procedure Note Date of Service January 30, 2022 Note Ramya MCBRIDE was called overhead at 10:53 AM. Shortly after I arrived to the room after donning appropriate PPE. Patient was found to be in a PEA arrest. Multiple doses of epinephrine were given. I did perform a [id number] ultrasound in between chest compressions and noted a moderate size pericardial effusion. No obvious Calloway sign was seen. A perfusing rhythm was obtained after approximately 10 minutes. The patient was manually bagged throughout the code. I then intubated the patient once ROSC was obtained. A perfusing rhythm was noted and blood pressure was noted to be in the 120s to 130s range systolically. Patient did have episodes of ongoing bradycardia and several dose of atropine were given over the span of 1 hour. Patient ultimately lost pulses again during this timeframe and briefly underwent chest compressions with a dose of epinephrine. Patient was ultimately placed on epinephrine infusion. We were able to sustain a perfusing rhythm the patient was ultimately hooked up to the ventilator. ABG was obtained which revealed severe hypercapnic respiratory failure and hypoxemia. Formal echo read was reviewed which indicated a normal LVEF with a moderate size pericardial effusion. No tamponade physiology was noted. The patient's family was called by the critical care PA and updated regarding the condition. The requested that we change the patient's CODE STATUS to DNR in the event of another cardiac arrest. They are agreeable with continuing current care at this time including mechanical ventilation and pressor support. Coding CPT Codes Resuscitation - Resuscitation: 31360 Heart/lung resuscitation CPR ([id number]) [facility] Procedure Codes (Charges) Resuscitation Resuscitation: 86967 Heart/lung resuscitation CPR
[2022-01-30] MEDS: INSULIN ASPART PER UNIT SC SCH ×4 (13:32→22:06)
--- NOTE | 2022-01-30 14:10 | Nephrology Consultation ---
Date of Consultation January 30, 2022 Assessment & Plan (1) CKD (chronic kidney disease): CKD w/ unknown baseline and if no LUCIANO prior to admission she is very likely to develop it/have it worsen after midday events with marked richardson-PEA hemodynamic instability. family currently discussing whether simply not to escalate care further or whether to transition to comfort measures. pt not likely a dialysis candidate therefore but will await their decision and follow. -f/u pending repeat chemistry -continue supportive care > no indication at this time for ivf -strict I/O -await repeat ABG after intubation/stabilization >ordered stat repeat hgb > last one is POC in midst of code Care coordinated w/ Dr Gloria. History of Present Illness Reason for Consultation: LUCIANO on CKD Requesting Physician: Dr Watson Attending Physician: Dominik Plata DO History of Present Illness 61 y/o F whom I'm asked to see for LUCIANO on CKD was admitted this AM for possible COPD exacerbation but also both Covid/influenza A positive. PMH includes DM, HTN, active tobacco abuse, CKD3 per report, hypothyroid, class 3 obesity. She presented with c/o productive cough, worsening dyspnea and chest pain as well as increasing edema including tongue swelling. Pt lives in the [facility] but reported not taking medications prior to arrival at hospital. Multifocal infiltrates and moderate pericardial effusion noted on CT. TTE w/ normal LV function and r/o tamponade. She was placed on bipap initially and received 100 mg IV lasix. Her hypoxia worsened through the late morning and culminated in PEA arrest. She had chest compressions, epinephrine, IV insulin, IV Calcium. The patient was intubated/bronched. her presenting creatinine was 3.5, K 5.6; to 3.4 and 5.2 respectively. A1c, TSH, other labs as below. No routine nsaid use per daughter. 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 COVID-19 Flu Hyperglycemia Hypothyroidism Shortness of breath Surgical History No pertinent past surgical history Social History Smoking Status: Unknown if ever smoked Hx Alcohol Use: No Hx Substance Use: No Preferred Language: German Communication Ability: Effective 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 Beliefs That Will Affect Care: None Current Living Situation: Family Other Information That Helps Us Care for You: No Feels Safe at Home: Yes Safety Concerns: Feels Safe At This Time Assistive Devices: Cane Review of Systems Review of Systems: Unobtainable due to endotracheal tube Physical Exam Constitutional: well developed, well nourished, + obese and + mechanically ventilated Eyes: EOM intact bilaterally ENMT: Ears: no external ear abnormality Nose: no external nose abnormality Mouth: + dry oral mucous membranes Neck: no nuchal rigidity Respiratory: normal respiratory effort Auscultation: + diminished lung sounds Cardiovascular: Rate/Rhythm: regular rate and regular rhythm (HS distant) Extremities: + abnormal capillary refill and no edema Gastrointestinal (Abdomen): Inspection/Auscultation: + hypoactive bowel sounds Percussion/Palpation: abdomen soft; abdomen nontender Musculoskeletal: Extremities: + abnormal strength Skin: no rashes, warm and dry skin very thick / dry on extremities - minimal redness Neurologic: intubated/sedated Genitourinary: urbina w/ scant yellow urine Results & Data ([facility]) Vital Signs (Past 12 Hours) Vital Signs Temp Pulse Pulse Resp BP BP Pulse Ox 01/30/22 12:45 58 L 28 H 83 L 01/30/22 12:30 59 L 30 H 81 L 01/30/22 12:15 62 0 L 78 L 01/30/22 12:11 36.4 C L 128 H 8 L 185/92 H 81 L 01/30/22 12:00 52 L 20 01/30/22 11:45 138 H 25 H 78 L 01/30/22 11:38 127 H 24 129/82 85 L 01/30/22 11:36 26 H 114/63 87 L 01/30/22 11:35 70 28 H 107/60 88 L 01/30/22 11:31 54 L 25 H 77/53 L 79 L 01/30/22 11:30 63 15 82 L 01/30/22 11:29 62 26 H 105/58 L 79 L 01/30/22 11:27 66 16 98/59 L 80 L 01/30/22 11:24 67 22 111/57 L 85 L 01/30/22 11:23 68 22 115/68 86 L 01/30/22 11:20 68 25 H 123/63 90 01/30/22 11:19 68 27 H 119/76 90 01/30/22 11:17 69 20 134/76 90 01/30/22 11:15 24 90 01/30/22 11:14 140 H 27 H 136/83 90 01/30/22 11:12 130 H 22 135/103 H 89 L 01/30/22 11:10 74 22 126/67 81 L 01/30/22 11:09 19 152/84 H 83 L 01/30/22 11:08 22 174/106 H 01/30/22 11:06 138 H 10 L 171/114 H 01/30/22 11:04 195/138 H 01/30/22 11:00 126 H 48 H 88 L 01/30/22 10:45 102 H 23 01/30/22 10:39 101 H 30 H 93 01/30/22 10:33 29 H 162/145 H 98 01/30/22 10:30 34 H 135/93 90 01/30/22 10:15 100 H 19 93 01/30/22 09:19 94 H 24 01/30/22 07:49 90 20 146/83 H 95 01/30/22 07:34 91 H 20 146/83 H 94 01/30/22 06:43 90 26 H 177/83 H 99 01/30/22 05:21 88 19 154/91 H 94 01/30/22 03:00 91 H 18 142/83 H 93 Laboratory Results 01/30/22 09:45 01/30/22 09:45 tsh 358 A1c 12.7% CRP 8.2 transferrin sat 8% UA 4+ protein, 1+ glucose, 3+ blood, 1+ bacteria else bland Diagnostic Findings CT chest FINDINGS: Significant respiratory motion artifact resulting in suboptimal evaluation. No pneumothorax. Consolidative airspace opacities seen within the lung bases most pronounced within the left lower lobe. There are also a few small patchy airspace opacities within the upper lobes, right greater than left. No suspicious lytic or blastic osseous lesions. Mild mediastinal lymphadenopathy . The jessica are not well evaluated. Moderate pericardial effusion measuring up to 1.7 cm in thickness. The heart is enlarged. Normal caliber thoracic aorta. The esophagus is within normal limits. Limited views of the upper abdomen demonstrate normal liver and spleen. IMPRESSION: 1. Significant respiratory motion artifact resulting in suboptimal due to the chest. 2. Multifocal consolidative airspace opacities most pronounced within the lower lobes consistent with a pneumonia. 3. Cardiomegaly with a moderate pericardial effusion. 4. Mild mediastinal lymphadenopathy. This is likely reactive to the suspected pneumonia. CXR 1230 IMPRESSION: No acute chest disease. Cardiomegaly is noted. Redemonstration of pulmonary congestion. Interval greater prominence of multifocal airspace opacities which m ay represent atelectasis, pneumonia, aspiration, and/or alveolar edema.
--- NOTE | 2022-01-30 14:15 | Cardiology Consultation ---
Date of Consultation January 30, 2022 Assessment & Plan (1) Pericardial effusion: (2) Respiratory failure requiring intubation: (3) COVID-19: (4) Acute kidney injury: (5) Anemia: Patient's care discussed with intensive care staff. Echocardiogram demonstrates small to moderate pericardial effusion without tamponade physiology. Suspect acute renal failure as well as profound hypothyroidism/myxedema contributing Current plan is relatively conservative care but could consider temporary pa cemaker persistent bradycardia present Still struggling with hypoxia despite mechanical ventilation History of Present Illness Reason for Consultation: Pericardial effusion Requesting Physician: Dr. Watson Attending Physician: Dominik Plata DO History of Present Illness Patient is a 61-year-old female not previously known to this institution referred for evaluation of pericardial effusion on screening CT scan with patient presenting with acute hypoxic respiratory failure. Testing demonstrates evidence of Covid and influenza as well as profound hypothyroidism/myxedema and possibly acute renal failure with anemia EKG revealed low voltage QRS without acute ST segment changes on presentation. Patient referred for cardiology evaluation and echocardiogram Patient requiring BiPAP support for respiratory hypoxia Shortly after echocardiogram performed patient suffered a PEA arrest with intermittent bradycardia and high degree AV block. Patient has undergone extensive resuscitation and intubation though remains hypoxic and is being transferred to the intensive care unit Allergies Allergy/AdvReac Type Severity Reaction Status Date / Time aspirin AdvReac Severe Gastrointestinal Verified 01/30/22 01:43 Upset Home Medications Medication Instructions Recorded Confirmed Type Unobtainable 01/30/22 01/30/22 History Patient History Medical History Acute anemia Acute kidney injury Anemia Cardiac arrest COVID-19 Flu Hyperglycemia Hypothyroidism Shortness of breath Surgical History No pertinent past surgical history Social History Smoking Status: Current every day smoker Preferred Language: Slovak Feels Safe at Home: Yes Review of Systems Review of Systems: Unobtainable due to endotracheal tube Results & Data ([facility]) Vital Signs (Past 12 Hours) Vital Signs Temp Pulse Pulse Resp BP BP Pulse Ox 01/30/22 12:45 58 L 28 H 83 L 01/30/22 12:30 59 L 30 H 81 L 01/30/22 12:15 62 0 L 78 L 01/30/22 12:11 36.4 C L 128 H 8 L 185/92 H 81 L 01/30/22 12:00 52 L 20 01/30/22 11:45 138 H 25 H 78 L 01/30/22 11:38 127 H 24 129/82 85 L 01/30/22 11:36 26 H 114/63 87 L 01/30/22 11:35 70 28 H 107/60 88 L 01/30/22 11:31 54 L 25 H 77/53 L 79 L 01/30/22 11:30 63 15 82 L 01/30/22 11:29 62 26 H 105/58 L 79 L 01/30/22 11:27 66 16 98/59 L 80 L 01/30/22 11:24 67 22 111/57 L 85 L 01/30/22 11:23 68 22 115/68 86 L 01/30/22 11:20 68 25 H 123/63 90 01/30/22 11:19 68 27 H 119/76 90 01/30/22 11:17 69 20 134/76 90 01/30/22 11:15 24 90 01/30/22 11:14 140 H 27 H 136/83 90 01/30/22 11:12 130 H 22 135/103 H 89 L 01/30/22 11:10 74 22 126/67 81 L 01/30/22 11:09 19 152/84 H 83 L 01/30/22 11:08 22 174/106 H 01/30/22 11:06 138 H 10 L 171/114 H 01/30/22 11:04 195/138 H 01/30/22 11:00 126 H 48 H 88 L 01/30/22 10:45 102 H 23 01/30/22 10:39 101 H 30 H 93 01/30/22 10:33 29 H 162/145 H 98 01/30/22 10:30 34 H 135/93 90 01/30/22 10:15 100 H 19 93 01/30/22 09:19 94 H 24 01/30/22 07:49 90 20 146/83 H 95 01/30/22 07:34 91 H 20 146/83 H 94 01/30/22 06:43 90 26 H 177/83 H 99 01/30/22 05:21 88 19 154/91 H 94 01/30/22 03:00 91 H 18 142/83 H 93 Laboratory Results Laboratory Results - last 24 hr 01/30/22 01/30/22 01/30/22 01:30 01:34 01:35 WBC 7.79 RBC 2.53 L Hgb 8.1 L POC Hgb Hct 23.7 L POC Hct MCV 93.7 MCH 32.0 MCHC 34.2 RDW Std Deviation 47.2 H RDW Coeff of [place] 13.7 Plt Count 176 MPV 9.7 Immature Gran % (Auto) 0.3 Neut % (Auto) 87.8 Lymph % (Auto) 8.6 [place] % (Auto) 3.2 Eos % (Auto) 0.0 Baso % (Auto) 0.1 Neut # (Auto) 6.84 H Lymph # (Auto) 0.67 L [place] # (Auto) 0.25 Eos # (Auto) 0.00 Baso # (Auto) 0.01 Immature Gran # (Auto) 0.02 ESR PT INR APTT PTT Ratio D-Dimer Sample Site POC pH POC pCO2 POC pO2 POC HCO3 POC Total CO2 POC Base Excess ABG pH ABG pH (Temp Correct) ABG pCO2 ABG pCO2 (Temp Corrct ABG pO2 POC ABG pO2 at Pt Temp ABG HCO3 POC ABG O2 Sat ABG O2 Saturation ABG Base Excess Vitor Test VBG pH VBG pCO2 VBG pO2 VBG HCO3 VBG O2 Saturation VBG Base Excess Barometric Pressure Oxygen Given O2 Delivery Device POC O2 Rate Minute Ventilation POC FiO2 Tidal Volume PEEP POC Sodium Sodium POC Potassium Potassium Chloride Carbon Dioxide Anion Gap BUN Creatinine Est Cr Clr Drug Dosing Est GFR ( Amer) Est GFR (Non-Af Amer) BUN/Creatinine Ratio Glucose POC Glucose 279 H Estimat Average Glucose Hemoglobin A1c Hgb A1c Pathologist Com Calcium Magnesium Iron TIBC Unsaturated IBC Transferrin % Sat Total Bilirubin AST ALT Alkaline Phosphatase Troponin I C-Reactive Protein B-Natriuretic Peptide Total Protein Albumin Globulin Albumin/Globulin Ratio Vitamin B12 Folate Procalcitonin TSH Free T4 Urine Color Urine Appearance Urine pH Ur Specific [place] Urine Protein Urine Glucose (UA) Urine Ketones Urine Blood Urine Nitrite Urine Bilirubin Urine Urobilinogen Ur Leukocyte Esterase Urine WBC (Auto) Urine RBC (Auto) U Hyaline Cast (Auto) U Epithel Cells (Auto) Urine Bacteria (Auto) SARS-CoV-2 (PCR) Influenza Type A (PCR) Influenza Type B (PCR) RSV (RT-PCR) SARS-CoV-2, RNA, NAAT NEGATIVE Blood Type Blood Type Recheck Antibody Screen Crossmatch 01/30/22 01/30/22 01/30/22 01:35 01:35 01:35 WBC RBC Hgb POC Hgb Hct POC Hct MCV MCH MCHC RDW Std Deviation RDW Coeff of [place] Plt Count MPV Immature Gran % (Auto) Neut % (Auto) Lymph % (Auto) [place] % (Auto) Eos % (Auto) Baso % (Auto) Neut # (Auto) Lymph # (Auto) [place] # (Auto) Eos # (Auto) Baso # (Auto) Immature Gran # (Auto) ESR 53 H PT INR APTT PTT Ratio D-Dimer Sample Site POC pH POC pCO2 POC pO2 POC HCO3 POC Total CO2 POC Base Excess ABG pH ABG pH (Temp Correct) ABG pCO2 ABG pCO2 (Temp Corrct ABG pO2 POC ABG pO2 at Pt Temp ABG HCO3 POC ABG O2 Sat ABG O2 Saturation ABG Base Excess Vitor Test VBG pH VBG pCO2 VBG pO2 VBG HCO3 VBG O2 Saturation VBG Base Excess Barometric Pressure Oxygen Given O2 Delivery Device POC O2 Rate Minute Ventilation POC FiO2 Tidal Volume PEEP POC Sodium Sodium 132 L POC Potassium Potassium 5.6 H Chloride 102 Carbon Dioxide 21 Anion Gap 9 BUN 31 H Creatinine 3.53 H Est Cr Clr Drug Dosing Not Reportable Est GFR ( Amer) 15.3 Est GFR (Non-Af Amer) 13.2 BUN/Creatinine Ratio 8.8 L Glucose 248 H POC Glucose Estimat Average Glucose Hemoglobin A1c Hgb A1c Pathologist Com Calcium 7.9 L Magnesium Iron TIBC Unsaturated IBC Transferrin % Sat Total Bilirubin 0.8 AST 52 H ALT 45 Alkaline Phosphatase 177 H Troponin I < 0.03 C-Reactive Protein 8.20 H B-Natriuretic Peptide 34 Total Protein 6.6 Albumin 3.4 Globulin 3.2 Albumin/Globulin Ratio 1.1 Vitamin B12 Folate Procalcitonin TSH Free T4 Urine Color Urine Appearance Urine pH Ur Specific [place] Urine Protein Urine Glucose (UA) Urine Ketones Urine Blood Urine Nitrite Urine Bilirubin Urine Urobilinogen Ur Leukocyte Esterase Urine WBC (Auto) Urine RBC (Auto) U Hyaline Cast (Auto) U Epithel Cells (Auto) Urine Bacteria (Auto) SARS-CoV-2 (PCR) Influenza Type A (PCR) Influenza Type B (PCR) RSV (RT-PCR) SARS-CoV-2, RNA, NAAT Blood Type Blood Type Recheck Antibody Screen Crossmatch 01/30/22 01/30/22 01/30/22 01:35 01:35 01:35 WBC RBC Hgb POC Hgb Hct POC Hct MCV MCH MCHC RDW Std Deviation RDW Coeff of [place] Plt Count MPV Immature Gran % (Auto) Neut % (Auto) Lymph % (Auto) [place] % (Auto) Eos % (Auto) Baso % (Auto) Neut # (Auto) Lymph # (Auto) [place] # (Auto) Eos # (Auto) Baso # (Auto) Immature Gran # (Auto) ESR PT 12.0 INR 1.1 APTT 38.7 H PTT Ratio 1.4 D-Dimer Sample Site POC pH POC pCO2 POC pO2 POC HCO3 POC Total CO2 POC Base Excess ABG pH ABG pH (Temp Correct) ABG pCO2 ABG pCO2 (Temp Corrct ABG pO2 POC ABG pO2 at Pt Temp ABG HCO3 POC ABG O2 Sat ABG O2 Saturation ABG Base Excess Vitor Test VBG pH 7.24 L VBG pCO2 56 H VBG pO2 28 VBG HCO3 24 VBG O2 Saturation < 60.0 VBG Base Excess -4.1 Barometric Pressure Oxygen Given O2 Delivery Device POC O2 Rate Minute Ventilation POC FiO2 Tidal Volume PEEP POC Sodium Sodium POC Potassium Potassium Chloride Carbon Dioxide Anion Gap BUN Creatinine Est Cr Clr Drug Dosing Est GFR ( Amer) Est GFR (Non-Af Amer) BUN/Creatinine Ratio Glucose POC Glucose Estimat Average Glucose Hemoglobin A1c Hgb A1c Pathologist Com Calcium Magnesium Iron TIBC Unsaturated IBC Transferrin % Sat Total Bilirubin AST ALT Alkaline Phosphatase Troponin I C-Reactive Protein B-Natriuretic Peptide Total Protein Albumin Globulin Albumin/Globulin Ratio Vitamin B12 Folate Procalcitonin 0.52 H TSH Free T4 Urine Color Urine Appearance Urine pH Ur Specific [place] Urine Protein Urine Glucose (UA) Urine Ketones Urine Blood Urine Nitrite Urine Bilirubin Urine Urobilinogen Ur Leukocyte Esterase Urine WBC (Auto) Urine RBC (Auto) U Hyaline Cast (Auto) U Epithel Cells (Auto) Urine Bacteria (Auto) SARS-CoV-2 (PCR) Influenza Type A (PCR) Influenza Type B (PCR) RSV (RT-PCR) SARS-CoV-2, RNA, NAAT Blood Type Blood Type Recheck Antibody Screen Crossmatch 01/30/22 01/30/22 01/30/22 01:35 02:15 05:21 WBC RBC Hgb POC Hgb Hct POC Hct MCV MCH MCHC RDW Std Deviation RDW Coeff of [place] Plt Count MPV Immature Gran % (Auto) Neut % (Auto) Lymph % (Auto) [place] % (Auto) Eos % (Auto) Baso % (Auto) Neut # (Auto) Lymph # (Auto) [place] # (Auto) Eos # (Auto) Baso # (Auto) Immature Gran # (Auto) ESR PT INR APTT PTT Ratio D-Dimer Sample Site POC pH POC pCO2 POC pO2 POC HCO3 POC Total CO2 POC Base Excess ABG pH ABG pH (Temp Correct) ABG pCO2 ABG pCO2 (Temp Corrct ABG pO2 POC ABG pO2 at Pt Temp ABG HCO3 POC ABG O2 Sat ABG O2 Saturation ABG Base Excess Vitor Test VBG pH VBG pCO2 VBG pO2 VBG HCO3 VBG O2 Saturation VBG Base Excess Barometric Pressure Oxygen Given O2 Delivery Device POC O2 Rate Minute Ventilation POC FiO2 Tidal Volume PEEP POC Sodium Sodium POC Potassium Potassium Chloride Carbon Dioxide Anion Gap BUN Creatinine Est Cr Clr Drug Dosing Est GFR ( Amer) Est GFR (Non-Af Amer) BUN/Creatinine Ratio Glucose POC Glucose Estimat Average Glucose Hemoglobin A1c Hgb A1c Pathologist Com Calcium Magnesium Iron TIBC Unsaturated IBC Transferrin % Sat Total Bilirubin AST ALT Alkaline Phosphatase Troponin I C-Reactive Protein B-Natriuretic Peptide Total Protein Albumin Globulin Albumin/Globulin Ratio Vitamin B12 Folate Procalcitonin TSH 358.522 H Free T4 < 0.25 L Urine Color Yellow Urine Appearance Clear Urine pH 5.5 Ur Specific [place] 1.018 Urine Protein 4+ H Urine Glucose (UA) 1+ H Urine Ketones Negative Urine Blood 3+ H Urine Nitrite Negative Urine Bilirubin Negative Urine Urobilinogen Negative Ur Leukocyte Esterase Negative Urine WBC (Auto) 1-5 Urine RBC (Auto) 0-4 U Hyaline Cast (Auto) 5-10 H U Epithel Cells (Auto) >30 H Urine Bacteria (Auto) 1+ H SARS-CoV-2 (PCR) Influenza Type A (PCR) Influenza Type B (PCR) RSV (RT-PCR) SARS-CoV-2, RNA, NAAT Blood Type O Positive Blood Type Recheck Antibody Screen NEGATIVE Crossmatch See Detail 0301/30/22 01/30/22 05:37 09:45 09:45 WBC 8.66 RBC 2.56 L Hgb 8.0 L POC Hgb Hct 23.9 L POC Hct MCV 93.4 MCH 31.3 MCHC 33.5 RDW Std Deviation 47.2 H RDW Coeff of [place] 13.8 Plt Count 147 MPV 9.0 Immature Gran % (Auto) 0.3 Neut % (Auto) 89.4 Lymph % (Auto) 5.5 [place] % (Auto) 4.7 Eos % (Auto) 0.0 Baso % (Auto) 0.1 Neut # (Auto) 7.73 H Lymph # (Auto) 0.48 L [place] # (Auto) 0.41 Eos # (Auto) 0.00 Baso # (Auto) 0.01 Immature Gran # (Auto) 0.03 H ESR PT INR APTT PTT Ratio D-Dimer Sample Site POC pH POC pCO2 POC pO2 POC HCO3 POC Total CO2 POC Base Excess ABG pH ABG pH (Temp Correct) ABG pCO2 ABG pCO2 (Temp Corrct ABG pO2 POC ABG pO2 at Pt Temp ABG HCO3 POC ABG O2 Sat ABG O2 Saturation ABG Base Excess Vitor Test VBG pH VBG pCO2 VBG pO2 VBG HCO3 VBG O2 Saturation VBG Base Excess Barometric Pressure Oxygen Given O2 Delivery Device POC O2 Rate Minute Ventilation POC FiO2 Tidal Volume PEEP POC Sodium Sodium 133 L POC Potassium Potassium 5.2 H Chloride 103 Carbon Dioxide 20 L Anion Gap 10 BUN 33 H Creatinine 3.40 H Est Cr Clr Drug Dosing 19.8 Est GFR ( Amer) 16.0 Est GFR (Non-Af Amer) 13.8 BUN/Creatinine Ratio 9.7 L Glucose 248 H POC Glucose Estimat Average Glucose Hemoglobin A1c Hgb A1c Pathologist Com Calcium 8.6 Magnesium 1.8 Iron 23 L TIBC 280 Unsaturated IBC 257 Transferrin % Sat 8 L Total Bilirubin AST ALT Alkaline Phosphatase Troponin I < 0.03 C-Reactive Protein B-Natriuretic Peptide Total Protein Albumin Globulin Albumin/Globulin Ratio Vitamin B12 Folate Procalcitonin TSH Free T4 Urine Color Urine Appearance Urine pH Ur Specific [place] Urine Protein Urine Glucose (UA) Urine Ketones Urine Blood Urine Nitrite Urine Bilirubin Urine Urobilinogen Ur Leukocyte Esterase Urine WBC (Auto) Urine RBC (Auto) U Hyaline Cast (Auto) U Epithel Cells (Auto) Urine Bacteria (Auto) SARS-CoV-2 (PCR) POSITIVE A* Influenza Type A (PCR) Positive A* Influenza Type B (PCR) Negative RSV (RT-PCR) Negative SARS-CoV-2, RNA, NAAT Blood Type Blood Type Recheck Antibody Screen Crossmatch 01/30/22 01/30/22 01/30/22 09:45 09:45 09:45 WBC RBC Hgb POC Hgb Hct POC Hct MCV MCH MCHC RDW Std Deviation RDW Coeff of [place] Plt Count MPV Immature Gran % (Auto) Neut % (Auto) Lymph % (Auto) [place] % (Auto) Eos % (Auto) Baso % (Auto) Neut # (Auto) Lymph # (Auto) [place] # (Auto) Eos # (Auto) Baso # (Auto) Immature Gran # (Auto) ESR PT INR APTT PTT Ratio D-Dimer Sample Site POC pH POC pCO2 POC pO2 POC HCO3 POC Total CO2 POC Base Excess ABG pH 7.22 L ABG pH (Temp Correct) ABG pCO2 53 H ABG pCO2 (Temp Corrct ABG pO2 57 L POC ABG pO2 at Pt Temp ABG HCO3 21 POC ABG O2 Sat ABG O2 Saturation 82.2 L ABG Base Excess -6.5 Vitor Test Pos VBG pH VBG pCO2 VBG pO2 VBG HCO3 VBG O2 Saturation VBG Base Excess Barometric Pressure 735.4 Oxygen Given 12L O2 Delivery Device POC O2 Rate Minute Ventilation POC FiO2 Tidal Volume PEEP POC Sodium Sodium POC Potassium Potassium Chloride Carbon Dioxide Anion Gap BUN Creatinine Est Cr Clr Drug Dosing Est GFR ( Amer) Est GFR (Non-Af Amer) BUN/Creatinine Ratio Glucose POC Glucose Estimat Average Glucose 318 Hemoglobin A1c 12.7 H Hgb A1c Pathologist Com Calcium Magnesium Iron TIBC Unsaturated IBC Transferrin % Sat Total Bilirubin AST ALT Alkaline Phosphatase Troponin I C-Reactive Protein B-Natriuretic Peptide Total Protein Albumin Globulin Albumin/Globulin Ratio Vitamin B12 479 Folate 15.10 Procalcitonin TSH Free T4 Urine Color Urine Appearance Urine pH Ur Specific [place] Urine Protein Urine Glucose (UA) Urine Ketones Urine Blood Urine Nitrite Urine Bilirubin Urine Urobilinogen Ur Leukocyte Esterase Urine WBC (Auto) Urine RBC (Auto) U Hyaline Cast (Auto) U Epithel Cells (Auto) Urine Bacteria (Auto) SARS-CoV-2 (PCR) Influenza Type A (PCR) Influenza Type B (PCR) RSV (RT-PCR) SARS-CoV-2, RNA, NAAT Blood Type Blood Type Recheck Antibody Screen Crossmatch 01/30/22 01/30/22 01/30/22 09:45 09:45 09:48 WBC RBC Hgb POC Hgb Hct POC Hct MCV MCH MCHC RDW Std Deviation RDW Coeff of [place] Plt Count MPV Immature Gran % (Auto) Neut % (Auto) Lymph % (Auto) [place] % (Auto) Eos % (Auto) Baso % (Auto) Neut # (Auto) Lymph # (Auto) [place] # (Auto) Eos # (Auto) Baso # (Auto) Immature Gran # (Auto) ESR PT INR APTT PTT Ratio D-Dimer 2270 H* Sample Site POC pH POC pCO2 POC pO2 POC HCO3 POC Total CO2 POC Base Excess ABG pH ABG pH (Temp Correct) ABG pCO2 ABG pCO2 (Temp Corrct ABG pO2 POC ABG pO2 at Pt Temp ABG HCO3 POC ABG O2 Sat ABG O2 Saturation ABG Base Excess Vitor Test VBG pH VBG pCO2 VBG pO2 VBG HCO3 VBG O2 Saturation VBG Base Excess Barometric Pressure Oxygen Given O2 Delivery Device POC O2 Rate Minute Ventilation POC FiO2 Tidal Volume PEEP POC Sodium Sodium POC Potassium Potassium Chloride Carbon Dioxide Anion Gap BUN Creatinine Est Cr Clr Drug Dosing Est GFR ( Amer) Est GFR (Non-Af Amer) BUN/Creatinine Ratio Glucose POC Glucose Estimat Average Glucose Hemoglobin A1c Hgb A1c Pathologist Com Calcium Magnesium Iron TIBC Unsaturated IBC Transferrin % Sat Total Bilirubin AST ALT Alkaline Phosphatase Troponin I Pending C-Reactive Protein B-Natriuretic Peptide Total Protein Albumin Globulin Albumin/Globulin Ratio Vitamin B12 Folate Procalcitonin TSH Free T4 Urine Color Urine Appearance Urine pH Ur Specific [place] Urine Protein Urine Glucose (UA) Urine Ketones Urine Blood Urine Nitrite Urine Bilirubin Urine Urobilinogen Ur Leukocyte Esterase Urine WBC (Auto) Urine RBC (Auto) U Hyaline Cast (Auto) U Epithel Cells (Auto) Urine Bacteria (Auto) SARS-CoV-2 (PCR) Influenza Type A (PCR) Influenza Type B (PCR) RSV (RT-PCR) SARS-CoV-2, RNA, NAAT Blood Type Blood Type Recheck O Positive Antibody Screen Crossmatch 01/30/22 12:18 WBC RBC Hgb POC Hgb 5.4 L* Hct POC Hct 16 L* MCV MCH MCHC RDW Std Deviation RDW Coeff of [place] Plt Count MPV Immature Gran % (Auto) Neut % (Auto) Lymph % (Auto) [place] % (Auto) Eos % (Auto) Baso % (Auto) Neut # (Auto) Lymph # (Auto) [place] # (Auto) Eos # (Auto) Baso # (Auto) Immature Gran # (Auto) ESR PT INR APTT PTT Ratio D-Dimer Sample Site Art Line POC pH 6.80 L* POC pCO2 > 115 H POC pO2 69 L POC HCO3 18 L POC Total CO2 22 L POC Base Excess -16.0 L ABG pH ABG pH (Temp Correct) 6.813 L* ABG pCO2 ABG pCO2 (Temp Corrct 112 H ABG pO2 POC ABG pO2 at Pt Temp 64 ABG HCO3 POC ABG O2 Sat 69.0 L ABG O2 Saturation ABG Base Excess Vitor Test NA VBG pH VBG pCO2 VBG pO2 VBG HCO3 VBG O2 Saturation VBG Base Excess Barometric Pressure Oxygen Given O2 Delivery Device Ventilator POC O2 Rate 20 Minute Ventilation 6.0 POC FiO2 100 Tidal Volume 350 PEEP 18 POC Sodium 134 L Sodium POC Potassium 5.0 Potassium Chloride Carbon Dioxide Anion Gap BUN Creatinine Est Cr Clr Drug Dosing Est GFR ( Amer) Est GFR (Non-Af Amer) BUN/Creatinine Ratio Glucose POC Glucose Estimat Average Glucose Hemoglobin A1c Hgb A1c Pathologist Com Calcium Magnesium Iron TIBC Unsaturated IBC Transferrin % Sat Total Bilirubin AST ALT Alkaline Phosphatase Troponin I C-Reactive Protein B-Natriuretic Peptide Total Protein Albumin Globulin Albumin/Globulin Ratio Vitamin B12 Folate Procalcitonin TSH Free T4 Urine Color Urine Appearance Urine pH Ur Specific [place] Urine Protein Urine Glucose (UA) Urine Ketones Urine Blood Urine Nitrite Urine Bilirubin Urine Urobilinogen Ur Leukocyte Esterase Urine WBC (Auto) Urine RBC (Auto) U Hyaline Cast (Auto) U Epithel Cells (Auto) Urine Bacteria (Auto) SARS-CoV-2 (PCR) Influenza Type A (PCR) Influenza Type B (PCR) RSV (RT-PCR) SARS-CoV-2, RNA, NAAT Blood Type Blood Type Recheck Antibody Screen Crossmatch
[2022-01-30] MEDS ORDERED: HYDROCORTISONE SOD 50 MG in SYRINGE 0 ML IV ONE (14:45)
[2022-01-30] MEDS: methylPREDNISolone 40 MG in SYRINGE 0 ML IV SCH ×2 (14:57→15:08)
[2022-01-30] MEDS: DOXYCYCLINE HYCLATE 100 MG in DEXTROSE 5% 100 ML IV SCH ×2 (14:59→20:56)
[2022-01-30 15:08] LABS: Hematocrit (blood only) 23.7 % (37-47); Hemoglobin 7.8 g/dL (12.0-16.0)
[2022-01-30 15:09] LABS: Albumin Level 2.7 gm/dl (3.4-5.0); BUN Creatinine Ratio 9.7 (10-20); Bilirubin Direct 0.8 mg/dl (0-0.2); Bilirubin,Total 1.4 mg/dl (0.2-1.0); Calcium 8.6 mg/dl (8.5-10.1); Creatinine Clr Calc Pharmacy 19.3 ml/min; Est GFR (African American) 15.5 ml/min; Est GFR (Non-African American) 13.4 ml/min; Potassium 4.9 mmol/L (3.5-5.1); Total Protein 5.3 gm/dl (6.0-8.3)
[2022-01-30 15:29] LABS: iSTAT Arterial Blood Gas HCO3 15 meg/L (19-24); iSTAT Arterial Blood Gas pCO2 47 mmHg (35-46); iSTAT Arterial Blood Gas pH 7.12 (7.35-7.45); iSTAT Arterial Blood Gas pO2 85 mmHg (80-95); iSTAT Carbon Dioxide 16 mmol/L (24-31); iSTAT FiO2 100 %; iSTAT Site Art Line
[2022-01-30] MEDS ORDERED: MAGNESIUM SULFATE / D5W 1 GM/100 ML BAG IV ONE (15:30)
[2022-01-30] MEDS: ARTIFICIAL TEARS OP OINT 3.5 GM TUBE OP SCH ×3 (15:48→19:49)
[2022-01-30] MEDS: HYDROCORTISONE SOD 50 MG in SYRINGE 0 ML IV SCH (18:30)
[2022-01-30 19:36] LABS: iSTAT Arterial Blood Gas HCO3 14 meg/L (19-24); iSTAT Arterial Blood Gas pCO2 42 mmHg (35-46); iSTAT Arterial Blood Gas pH 7.12 (7.35-7.45); iSTAT Arterial Blood Gas pO2 74 mmHg (80-95); iSTAT Carbon Dioxide 15 mmol/L (24-31); iSTAT FiO2 100 %; iSTAT Site Art Line
[2022-01-31] MEDS: HYDROCORTISONE SOD 50 MG in SYRINGE 0 ML IV SCH (00:45)
[2022-01-31] MEDS: ARTIFICIAL TEARS OP OINT 3.5 GM TUBE OP SCH (00:45)
--- NOTE | 2022-01-31 01:01 | Communication Note ---
Date of Service: January 31, 2022 At the request of family Per nursing staff, I did discuss mother's ongoing clinical condition, especially with their preference for proceeding with compassionate extubation and proceeding with comfort measures. I did have a lengthy discussion with 2 of the patient's daughters at bedside who have been decision-makers to this point. Yumiko terri Christine informed me that they have a brother as well as a younger sister. Apparently, the brother had been to the hospital, but reports that he would not wish to be present, but does wish to proceed with comfort measures. Additionally, they inform me that several family members have been in contact by phone and they report that the patient would not wish to be undergoing current treatment including intubation with mechanical ventilation. Ultimately, all family is in complete agreement that they would wish to proceed with compassionate extubation recognizing that this would lead to likely quick decline and . Present sisters struggled with the fact that they have been trying to make arrangements for their younger sister to arrive for most of the afternoon. They state that the youngest sister is currently in route to the hospital and should arrive at around 2 AM. Sisters suggested that we wait until this time and continue current care and proceed with compassionate extubation when younger sister is present. I do feel that this is reasonable to this point, especially given the gravity of scenario. In addition, I did discuss ongoing management at this point. We did discuss that patient is currently on high doses of epinephrine to maintain heart rate and blood pressures. Family does acknowledge of this and is in agreement with continuing these medications at this point. I did discuss as the patient was persistently acidotic as well as with elevated blood glucose levels the potential of starting sodium bicarbonate drip as well as insulin drips. Family was absolutely adamant that they would not wish to proceed with these medications and would rather have no escalation of care. They recognize that she may pass away in the window of time it takes for the remaining sister to get the bedside. They do acknowledge this and states that despite the potential for deterioration, they would not wish to escalate care regardless. 0405: It was noticed that the patient became increasingly hypotensive despite maximum doses of epinephrine. With this profound hypotension and decreased heart rate, I did immediately present to bedside as I am concerned the patient is near passing. Third sister has yet to arrive at bedside. Apparently, per sisters, she sustained a flat tire in route to the hospital. I did express my concern that the patient is now significantly hypotensive and heart rate is slowing. I am concerned that she is now actively dying and will do so within the next minutes. I did discuss compassionate extubation. Family wishes to proceed with terminal extubation at this time. Respiratory therapy and nursing staff bedside. Patient extubated. Shortly after extubation, the patient developed agonal rhythms with little to no blood pressure detectable on femoral arterial line. I did assess the patient and she was noted to have fixed and dilated pupils. She was without heart sounds. She does not withdrawal to painful stimuli. Time of pronounced at 0425. Condolences offered to family. They are waiting further third sister to arrive. I have personally spent 55 minutes of critical care time in the direct management of this patient. This is a life/limb threatening event. This includes time spent evaluating patient, direct bedside care, chart review, placing orders, interpretation of diagnostic studies, discussion with consultants, patient, and family members, as well as other required patient management activities. This time is exclusive of all separately billable procedures, and teaching time and separate from and in addition to any other critical care service time. Coding Level of Care Code Critical Care 1st 30-74 mins Time Spent (min) 55
[2022-01-31] MEDS: EPINEPHrine/NSS 4 MG/254 ML BAG IV SCH ×2 (01:28→02:53)
[2022-01-31] MEDS: IPRATROPIUM BROMIDE NEB SOLN 0.02% 2.5 ML VIAL INH SCH (01:34)
[2022-01-31] MEDS: LEVALBUTEROL 1.25MG/0.5ML NEB INH SCH (01:34)
--- NOTE | 2022-01-31 04:44 | Death Pronouncement Note ---
Date of Service January 31, 2022 Pronouncement Note Admission Date January 30, 2022 Date and Time of Date of : 01/31/22 Time of : 04:25 Additional Data Confirmation of : other (teminally extubated) Pronouncement Performed By: other (Critical care -PA-C) Family: at bedside Attending physician: Dominik Plata DO
--- NOTE | 2022-01-31 04:46 | Death Pronouncement Note ---
Date of Service January 31, 2022 Pronouncement Note Admission Date Admission Date: January 30, 2022 Date and Time of Date of : 01/31/22 Time of : 04:25 PCOD Preliminary cause of : Respiratory failure with hypoxia Contributing Factors (1) CKD (chronic kidney disease): Contributing factors: COVID-19, status post cardiac arrest with ROSC Summary Additional details: Patient admitted to this institution with hypoxic respiratory failure in the setting of COVID-19 pneumonia as well as a multitude of underlying medical conditions which had apparently been addressed for extended amount of time as the patient had not established provider locally. Unfortunately, the patient sustained cardiac arrest and was resuscitated for approximately 15 minutes. Despite ROSC, the patient was noted to have periods of tachycardia as well as bradycardia arrhythmia. Eventually, the patient required high doses of epinephrine to maintain blood pressure and heart rates. The patient remained persistently acidotic. Per family's request, they do recommend no escalation of care with the intent for transition to comfort measures only with compassionate extubation. Patient extubated and ceased to breathe at 0425 Additional Data Confirmation of : no pulse, no respirations, no heart sounds and pupils fixed and dilated Family: at bedside Attending/PCP notified?: No Attending physician: Dominik Plata, DO Was code activated?: No Autopsy requested?: No re examiner notified?: Yes Organ bank notified?: No Advance directives: No Coding Level of Care Code D/C DAY MANAGEMENT <30 MINS Diagnoses CKD (chronic kidney disease) N18.9 Time Spent (min) 25
--- NOTE | 2022-01-31 05:50 | Electrocardiogram Report ---
Test Reason : Blood Pressure : / mmHG Vent. Rate : 094 BPM Atrial Rate : 094 BPM P-R Int : 144 ms QRS Dur : 074 ms QT Int : 354 ms P-R-T Axes : 031 004 -44 degrees QTc Int : 442 ms Poor data quality, interpretation may be adversely affected Normal sinus rhythm Low voltage QRS Nonspecific T wave abnormality Abnormal ECG No previous ECGs available Confirmed by Geoff Mccullough ([id number]) on 01/31/2022 5:50:37 AM Referred By: REFERRED SELF Confirmed By:Geoff Mccullough
--- NOTE | 2022-01-31 05:52 | Electrocardiogram Report ---
Test Reason : Blood Pressure : / mmHG Vent. Rate : 084 BPM Atrial Rate : 084 BPM P-R Int : 148 ms QRS Dur : 076 ms QT Int : 354 ms P-R-T Axes : 048 017 055 degrees QTc Int : 418 ms Normal sinus rhythm Low voltage QRS Cannot rule out Anterior infarct , age undetermined Abnormal ECG When compared with ECG of 30-JAN-2022 01:29, No significant change was found Confirmed by Geoff Mccullough ([id number]) on 01/31/2022 5:52:06 AM Referred By: REFERRED SELF Confirmed By:Geoff Mccullough
--- NOTE | 2022-01-31 06:19 | Electrocardiogram Report ---
Test Reason : Blood Pressure : / mmHG Vent. Rate : 125 BPM Atrial Rate : 127 BPM P-R Int : 000 ms QRS Dur : 136 ms QT Int : 324 ms P-R-T Axes : 000 231 138 degrees QTc Int : 467 ms Accelerated Junctional rhythm with occasional Premature ventricular complexes Right superior axis deviation Right bundle branch block ST elevation consider inferior injury or acute infarct ACUTE MA / STEMI Consider right ventricular involvement in acute inferior infarct Abnormal ECG When compared with ECG of 30-JAN-2022 04:00, Junctional rhythm has replaced Sinus rhythm Vent. rate has increased BY 41 BPM Right bundle branch block is now Present Minimal criteria for Anterior infarct are no longer Present ST elevation is now present in inferior leads Confirmed by Geoff Mccullough ([id number]) on 01/31/2022 6:19:13 AM Referred By: REFERRED SELF Confirmed By:Geoff Mccullough
--- NOTE | 2022-01-31 06:23 | Electrocardiogram Report ---
Test Reason : Blood Pressure : / mmHG Vent. Rate : 050 BPM Atrial Rate : 125 BPM P-R Int : 000 ms QRS Dur : 126 ms QT Int : 398 ms P-R-T Axes : 070 101 -22 degrees QTc Int : 362 ms Sinus tachycardia with high grade AV block Rightward axis Non-specific intra-ventricular conduction block Nonspecific T wave abnormality Abnormal ECG When compared with ECG of 30-JAN-2022 12:19, Sinus rhythm has replaced Junctional rhythm High grade AV block is now present Vent. rate has decreased BY 75 BPM Non-specific intra-ventricular conduction block has replaced Right bundle branch block ST elevation has improved in inferior leads Confirmed by Geoff Mccullough ([id number]) on 01/31/2022 6:23:22 AM Referred By: REFERRED SELF Confirmed By:Geoff Mccullough
--- NOTE | 2022-01-31 06:37 | Electrocardiogram Report ---
Test Reason : Blood Pressure : / mmHG Vent. Rate : 122 BPM Atrial Rate : 067 BPM P-R Int : 226 ms QRS Dur : 074 ms QT Int : 354 ms P-R-T Axes : 074 081 109 degrees QTc Int : 504 ms Sinus rhythm with 1st degree A-V block initially with Ventricular Tachycardia ST elevation consider inferolateral injury or acute infarct ACUTE UT / STEMI Consider right ventricular involvement in acute inferior infarct Prolonged QT Abnormal ECG When compared with ECG of 30-JAN-2022 12:23, VT is now present ST elevation is more significant in inferior leads High grade AV block is no longer present Confirmed by Geoff Mccullough ([id number]) on 01/31/2022 6:37:39 AM Referred By: REFERRED SELF Confirmed By:Geoff Mccullough
--- NOTE | 2022-01-31 07:15 | Hospitalist Progress Note ---
Date of Service January 31, 2022 Assessment & Plan Admission and Anticipated Discharge Date Admission Date: January 30, 2022 Subjective Patient was terminally extubated and cease to breath at 4:25am today January 31. Results & Data Results & Data ([facility]) Vital Signs (Past 12 Hours) Vital Signs Temp Pulse Pulse Resp BP Pulse Ox Pulse Ox 01/31/22 04:30 35.8 C L 0 L 0 L 01/31/22 04:25 0 L 01/31/22 04:00 35.8 C L 99 H 32 H 01/31/22 03:56 99 H 32 H 01/31/22 03:30 35.9 C L 101 H 7 L 01/31/22 03:00 36.0 C L 100 H 7 L 01/31/22 02:30 36.0 C L 97 H 13 78 L 01/31/22 02:00 36.1 C L 79 32 H 81 L 01/31/22 01:30 36.2 C L 85 8 L 01/31/22 01:14 95 01/31/22 01:00 36.2 C L 91 H 19 88 L 01/31/22 00:30 36.3 C L 83 8 L 93 01/31/22 00:01 111 H 01/31/22 00:00 36.3 C L 74 14 76 L 01/30/22 23:33 36.3 C L 110 H 19 01/30/22 23:30 36.3 C L 110 H 27 H 99 01/30/22 23:29 109 H 32 H 99 01/30/22 23:00 36.4 C L 110 H 32 H 100 01/30/22 22:40 36.4 C L 89 32 H 96 01/30/22 22:33 36.4 C L 71 32 H 01/30/22 22:30 36.4 C L 70 32 H 99 01/30/22 22:20 36.4 C L 65 32 H 100 01/30/22 22:10 36.4 C L 61 32 H 100 01/30/22 22:00 36.4 C L 75 32 H 99 01/30/22 21:50 36.4 C L 112 H 32 H 99 01/30/22 21:40 36.4 C L 113 H 32 H 99 01/30/22 21:33 36.4 C L 114 H 32 H 103/72 01/30/22 21:30 36.4 C L 114 H 32 H 99 01/30/22 21:20 36.4 C L 117 H 32 H 100 01/30/22 21:10 36.4 C L 55 L 32 H 93 01/30/22 21:00 36.4 C L 75 32 H 96 01/30/22 20:50 36.3 C L 88 32 H 100 01/30/22 20:40 36.3 C L 83 32 H 90 01/30/22 20:33 36.3 C L 117 H 32 H 01/30/22 20:30 36.3 C L 118 H 32 H 97 01/30/22 20:20 36.3 C L 118 H 32 H 97 01/30/22 20:14 36.3 C L 120 H 32 H 122/79 98 01/30/22 20:10 36.2 C L 76 32 H 99 01/30/22 20:00 118 H 32 H 96 01/30/22 19:50 102 H 32 H 98 01/30/22 19:40 80 32 H 100 01/30/22 19:33 117 H 32 H 94 01/30/22 19:30 78 35 H 83 L 01/30/22 19:20 88 32 H 94
[2022-01-31] MEDS ORDERED: OSELTAMIVIR PHOSPHATE SUSP 30 MG/5 ML UDP PO SCH (09:00)
[2022-01-31] MEDS ORDERED: CETIRIZINE HCL 10 MG TABLET PO SCH (09:00)
--- NOTE | 2022-02-01 06:58 | Discharge Summary ---
Date of Service January 31, 2022 Admission HPI Per Admitting Provider 61-year-old female with past medical history significant for diabetes, hypertension, hypothyroidism, chronic kidney disease stage III as per the patient, who was brought in because of shortness of breath. The patient used to live in [place]; about a year ago, she moved to [place] to live with a daughter. Since then, she is not taking any medications. When asked why, the patient says she does not have any medications to take. She came to live with family member at [place] recently. The family member states she is like her mom to her and she says rula saw one doctor in [place] but there is another appointment on 02/13/2022 with a new doctor. The patient was brought in because since last 2-3 days, she has had a lot of cough, bringing up some yellow phlegm, shortness of breath and chest pain while she is coughing and she is also getting swollen up and also there is complaint of some tongue swelling. The patient says she has tongue swelling in the past, but again for the last 2-3 days she is again having tongue swelling. The patient smokes 1-2 packs of cigarettes daily. No alcohol. The patient is not a great historian. Daughter does not know what medication she used to take in the past. Denies any heart problems. Currently, hemodynamically stable. The patient says she was told she has chronic kidney disease stage III long time back and she states she used to take levothyroxine 125 mcg daily and she states her blood pressure medications stopped because of her kidney function. Currently, denies any headache. She has some blurred visions, no earache, no runny nose, has some sore throat from coughing. Denies any fever or chills. Has chest pain, which is more with coughing .. No nausea. Appetite is not that great. No difficulty swallowing. No abdominal pain. Denies any diarrhea or constipation. Not making much urine as per the daughter. Not ambulating much, but she can go to bathroom and come back. Admission Exam Per Admitting Provider GENERAL: The patient is obese, not in acute distress. VITAL SIGNS: Temperature 36.8, pulse 91, respiratory rate 18, blood pressure 142/83. Oxygen, she was 88% when came in, 93% on 2 liters. HEENT: Pupils equal, round and reactive to light. Oral mucosa moist. NECK: No JVD, no neck masses. CARDIOVASCULAR: S1 and S2 heard. Regular rate and rhythm. No murmur, no gallop. RESPIRATORY SYSTEM: Normal AP diameter. No accessory muscle use. Bilateral rhonchi heard. No wheezing. ABDOMEN: Soft, bowel sounds present, nontender, no distention. CENTRAL NERVOUS SYSTEM: Alert and oriented. Speech is clear. No facial droop. Obeys simple commands. Moves extremities. EXTREMITIES: Bilateral lower extremity edema present. Principal Diagnosis (1) Respiratory failure requiring intubation:COVID and Influenza Viral Pneumonia (2) Hypothyroid coma: (3) Hyperkalemia: (4) Hypothyroidism: (5) Hyponatremia: (6) Anemia: (7) Shortness of breath: (8) Acute kidney injury: (9) Hyperglycemia: Discharge Data Allergies Allergy/AdvReac Type Severity Reaction Status Date / Time aspirin AdvReac Severe Gastrointestinal Verified 01/30/22 01:43 Upset Consultations 01/30/22 02:52 ED Decision to Admit Stat 01/30/22 08:56 Consult Nephrology Routine 01/30/22 10:09 Consult Cardiology Routine 01/30/22 10:25 Consult Pulmonology Routine 01/30/22 11:43 Consult Shearer Helper Stat Ordered Studies 01/30/22 05:03 CT chest diagnostic wo con Stat 01/30/22 11:20 US point of care ultrasound Routine Diabetes Follow up Diabetes Follow-up Needed for HgbA1c >9% Hospital Course (1) Respiratory failure requiring intubation: (2) Hypothyroid coma: (3) Hyperkalemia: (4) Hypothyroidism: (5) Hyponatremia: (6) Anemia: (7) Shortness of breath: (8) Acute kidney injury: (9) Hyperglycemia: Patient c difficulties, SOB, Abn ABG, Resp distress, TSH 358, Abn CTC, Placed on BIPAP, discussed case c CC , Ordered-NTP, Lasix, IV Synthroid, BIPAP. Shortly thereafter she coded, was in PEA, Rec Epi, CaCl2, D50, Insulin, Intubated, Cards at bedside and gave verbal echo report, +Pericardial Effusion, No Tamponade, Hyperdynamic LV, Also Cr 3.56. Transferred to ICU. Patient intubated with hypoxic respiratory failure in the setting of COVID-19 and Influenza pneumonia as well as a multitude of underlying medical conditions which had apparently been addressed for extended amount of time as the patient had not established provider locally. Unfortunately, the patient sustained cardiac arrest and was resuscitated for approximately 15 minutes. Despite ROSC, the patient was noted to have periods of tachycardia as well as bradycardia arrhythmia. Eventually, the patient required high doses of epinephrine to maintain blood pressure and heart rates. The patient remained persistently acidotic. Per family's request, they do recommend no escalation of care with the intent for transition to comfort measures only with compassionate extubation. Patient extubated and ceased to breathe at 0425 Physical Exam Total Time Total Time Spent Total Time Spent (In Minutes): 45 mins Total Time Includes: Discharge Planning Discharge Plan Discharge Items Patient Disposition: Reason For Visit: SOB Discharge Diagnosis: (1) Respiratory failure requiring intubation:COVID and Influenza Viral Pneumonia (2) Hypothyroid coma: (3) Hyperkalemia: (4) Hypothyroidism: (5) Hyponatremia: (6) Anemia: (7) Shortness of breath: (8) Acute kidney injury: (9) Hyperglycemia: Non-emergency contact: Primary Care Provider Call non-emergency contact if: you have any medication questions Follow-up/Referrals: Bulmaro Jean Baptiste M.D. [Primary Care Provider] - Addtl Attending Provider Instructions: Patient 0425 am 01/31/22, [employer] won't allow me to place real DC date Medications and DC Order Prescriptions: No Action Unobtainable RF: 0 Admission Data Admit Date/Time: 01/30/22 05:03 Attending Provider: Dominik Plata Admit Provider: Casey Watson Primary Care Provider: Bulmaro Jean Baptiste Other Providers: Heber Gloria ; Casey Watson ; Hosea Milton ; Torito Soto ; Ry Hernandez ; Víctor Espinosa ; Adithya Miller Other Date/Time: 02/01/22 04:25 Interventions: Discharge Summary Assessment (RN) Last Done: 01/31/22 07:54
== END 2022-01-31 07:55 | disposition expired | DRG 208 ==
LOC: ED 00:55 → 2E 05:03 → 1E 13:36